=== PATIENT | female | born 1950 | race Caucasian/White ===

== ENCOUNTER 2018-03-19 18:18 | Inpatient (IN) | payer MEDICAID, OTHER ==
[~2018-03-19] VITALS: Ht 167.6 cm; Wt 74.1 kg
[~2018-03-19 18:18] MED LIST: [UNRECOGNIZED DRUG - REMARK]
[2018-03-19] MEDS ORDERED: SOD CHLORIDE 0.9% 1,000 ML IV STA (20:05)
[2018-03-19] MEDS ORDERED: niCARdipine-NS 0.1MG/ML DRIP 200 ML IV SCH (20:30)
[2018-03-19] MEDS ORDERED: ENALAPRILAT 1.25 MG INJ IV ONE (20:30)
--- NOTE | 2018-03-19 20:37 | ERD ---
ER Documentation Chief Complaint Chief Complaint Complains of being altered Hx of a stroke and HTN HPI This is a 67-year-old woman with a history of aphasia 6 years ago presenting with agitation and confusion. Daughter was at the bedside states she is unable to speak since the stroke but was showing signs of confusion about1 hour prior to arrival. She is able to ambulate and move her extremities, she had no vomiting or diarrhea, no recent fevers or chills. ROS All systems reviewed and are negative except as per history of present illness. Medications Home Meds Reported Medications Calcium Carbonate-Vit D3-Minerals (Calcium 600 + D + Minerals) 1 Each Tablet, 1 TAB PO DAILY, TAB 03/19/18 Atorvastatin* (Atorvastatin*) 80 Mg Tablet, 80 MG PO QHS, #30 TAB 03/19/18 Glimepiride* (Glimepiride*) 4 Mg Tablet, 4 MG PO WITH BREAKFAST, TAB 03/19/18 Benazepril Hcl* (Benazepril Hcl*) 40 Mg Tablet, 40 MG PO DAILY, #30 TAB 03/19/18 Aspirin* (Aspirin* EC) 81 Mg Tablet.dr, 81 MG PO DAILY, TAB 03/19/18 Metformin Hcl* (Metformin Hcl*) 500 Mg Tablet, 500 MG PO WITH BREAKFAST DINNE, #60 TAB 03/19/18 Labetalol Hcl* (Labetalol Hcl*) 100 Mg Tablet, 50 MG PO QAM, TAB 03/19/18 Discontinued Reported Medications [?Htn Med] No Conflict Check 04/04/12 Allergies Allergies: Coded Allergies: No Known Allergy (Unverified , 03/19/18) PMhx/Soc Hypertension, history of stroke and aphasia History of Surgery: No Anesthesia Reaction: No Hx Respiratory Disorders: No Hx Psychiatric Problems: No Hx Miscellaneous Medical Probl: Yes (HTN, DM, hyperlipidemia) Hx Alcohol Use: No Hx Substance Use: No Hx Tobacco Use: No Smoking Status: Never smoker FmHx Family History: No diabetes Physical Exam Vitals Vital Signs Date Temp Pulse Resp B/P (MAP) Pulse Ox O2 O2 Flow FiO2 Time Delivery Rate 03/19/18 97.9 74 20 207/101 99 18:23 (136) Physical Exam Const: No acute distress, afebrile, appears confused Head: Atraumatic Eyes: Normal Conjunctiva, pupils equal round reactive to light ENT: Normal External Ears, Nose and Mouth. Neck: Full range of motion. No meningismus. Resp: Clear to auscultation bilaterally Cardio: Regular rate and rhythm, no murmurs Abd: Soft, non tender, non distended. Normal bowel sounds Skin: No petechiae or rashes Back: No midline or flank tenderness Ext: No cyanosis, or edema Neur: Eyes open, aphasic, moving all extremities but movement is decreased to the left upper extremity, pupils equal round reactive to light Psych: Agitated, confused, combative Result Diagram: 03/19/18 2017 03/19/182016 Results 24 hrs Laboratory Tests Test 03/19/18 20:04 03/19/18 20:17 03/19/18 21:38 Bedside Glucose 212 mg/dL White Blood Count 9.4 10^3/ul Red Blood Count 3.73 10^6/ul Hemoglobin 10.8 g/dl Hematocrit 34.0 % Mean Corpuscular Volume 91.2 fl Mean Corpuscular 29.0 pg Hemoglobin Mean Corpuscular 31.8 g/dl Hemoglobin Concent Red Cell Distribution 13.5 % Width Platelet Count 199 10^3/UL Mean Platelet Volume 11.5 fl Immature Granulocytes % 0.400 % Neutrophils % 64.5 % Lymphocytes % 27.8 % Monocytes % 4.9 % Eosinophils % 1.9 % Basophils % 0.5 % Nucleated Red Blood Cells 0.0 /100WBC % Immature Granulocytes # 0.040 10^3/ul Neutrophils # 6.1 10^3/ul Lymphocytes # 2.6 10^3/ul Monocytes # 0.5 10^3/ul Eosinophils # 0.2 10^3/ul Basophils # 0.1 10^3/ul Nucleated Red Blood Cells 0.0 10^3/ul # Prothrombin Time 12.2 Sec Prothrombin Time Ratio 1.0 INR International 0.90 Normalized Ratio Activated 29.5 Sec Partial Thromboplast Time Sodium Level 140 mmol/L Potassium Level 4.7 mmol/L Chloride Level 102 mmol/L Carbon Dioxide Level 29 mmol/L Anion Gap 9 Blood Urea Nitrogen 16 mg/dl Creatinine 0.83 mg/dl Est Glomerular Filtrat > 60 mL/min Rate mL/min Glucose Level 193 mg/dl Calcium Level 8.7 mg/dl Total Bilirubin 0.3 mg/dl Direct Bilirubin 0.00 mg/dl Indirect Bilirubin 0.3 mg/dl Aspartate Amino 19 IU/L Transf (AST/SGOT) Alanine 17 IU/L Aminotransferase (ALT/SGP T) Alkaline Phosphatase 83 IU/L Troponin I < 0.012 ng/ml Total Protein 7.5 g/dl Albumin 3.9 g/dl Globulin 3.60 g/dl Albumin/Globulin Ratio 1.08 Lipase 55 U/L Blood Gas Specimen Source Blood arterial Arterial Blood Date 03/19/2018 9:45:12 PM Drawn Arterial Blood pH 7.383 (Temp corrected) Arterial Blood pCO2 49.4 mmhg (Temp correct) Arterial Blood pO2 152.9 mmHG (Temp corrected) Arterial Blood HCO3 28.8 mmol/L Arterial Blood Base 2.9 mmol/L Excess Arterial Blood 98.7 mmHG Oxygen Saturation Atul Test N/A Arterial Blood Gas Right Brachial Puncture Site Arterial 0.2 % Blood Carboxyhemoglobin Arterial Blood 0.3 % Methemoglobin Blood Gas A-a O2 111.8 mmHg Differential Oxyhemoglobin Percent 98.2 % Blood Gas Temperature 37.0 C Blood Gas Modality MASK - SIMPLE FiO2 45.0 % Blood Gas Notified Whom KM Blood Gas Notified Time 03/19/2018 9:57:48 PM Current Medications Medications Dose Sig/Alexandra Start Time Status Last (Trade) Ordered Route PRN Stop Time Admin Dose Reason Admin Sodium 1,000 ml @ Q1H STAT 03/19/18 DC 03/19/18 Chloride 1,000 mls/hr IV 20:05 21:04 03/19/18 21:04 Enalaprilat 1.25 mg ONCE ONCE 03/19/18 DC (Vasotec Iv) IV 20:30 03/19/18 20:31 Nicardipine 200 ml @ TITRATE IV 03/19/18 03/19/18 HCl 50 mls/hr 20:30 20:44 Lorazepam 1 mg ONCE ONCE 03/19/18 DC 03/19/18 (Ativan) IV 21:00 21:03 03/19/18 21:01 100 ml @ ONCE ONCE 03/19/18 DC 03/19/18 Levetiracetam 400 mls/hr IVPB 22:30 23:26 03/19/18 22:44 IV Flush 10 ml STK-MED 03/19/18 DC (NS 10 ml) ONCE .ROUTE 22:19 03/19/18 22:20 Sodium 100 ml @ ud STK-MED 03/19/18 DC Chloride ONCE .ROUTE 22:19 03/19/18 22:20 Iohexol 100 ml @ STK-MED 03/19/18 DC ONCE .ROUTE 22:19 03/19/18 22:20 Aspirin 300 mg ONCE ONCE 03/19/18 03/19/18 (Aspirin) CT 23:30 23:26 03/19/18 23:31 Procedures/MDM IV line was established 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 Patient was afebrile blood pressure in the emergency department revealed a diastolic of 140 mmHg I ordered normal saline and immediate nicardipine drip for hypertensive emergency and hypertensive encephalopathy. She is not a candidate for emergent CT scan of the brain as she is combative and confused EKG performed, read by me revealed a normal sinus rhythm at 77 bpm, left axis deviation, narrow QRS complex, no concerning ST elevations or depressions noted Chest X-ray 1V Interpreted by me: Soft Tissue: No acute abnormalities Bones: No acute abnormalities Mediastinum/Cardiac Silhouette/Lungs: No acute abnormalities Patient remained agitated and combative and to proceed with CT scan imaging and management I administered lorazepam [address] scan of the brain was performed, it was negative for acute bleed mass or shift Critical Care: Time: 43 minutes, this was time separate from other billable procedures. Treatments/Evaluations: Close monitoring and treatment of unstable vital signs, cardiorespiratory, and neurologic status, while maintaining tight balance of fluid, respiratory, and cardiac interventions. CBC and electrolytes are normal, liver function tests were normal, troponin was negative. ABG performed on low flow oxygen revealed a pH of 7.38, PCO2 49, PO2 150 revealing mild respiratory acidosis and hypercarbia I proceeded with tele-neurology consultation for administration of antiepileptic drugs due to the possibility of nonconvulsive seizure with with possible Polo's paralysis to the left upper extremity. Patient was initially not a good candidate for TPA as she has had a prior stroke and her systolic and diastolic pressures were extremely elevated and were not responding to aggressive antihypertensive medications. Tele-neurologist did evaluate the patient and did recommend Keppra IV for antiseizure prophylaxis. He also recommended CTA of the brain and neck to rule out large vessel occlusion, if the studies are unremarkable patient will be admitted for continued stroke workup. CTA cerebrum and neck were negative for large vessel occlusion. There is no indication for emergent endovascular clot retrieval therapy and patient will be admitted for continued medical management and neurology consultation. I administered aspirin 300 mg per rectum for neuro protective measures. Departure Diagnosis: Primary Impression: Acute encephalopathy Additional Impressions: Hypertensive emergency Stroke CVA mechanism: unspecified Qualified Codes: I63.9 - Cerebral infarction, unspecified Nonconvulsive generalized seizure disorder Condition: Serious BONNY SARMIENTO MD Mar 19, 2018 20:37
[2018-03-19] MEDS ORDERED: LABE100T7 PO (20:48)
[2018-03-19] MEDS ORDERED: METF500T24 PO (20:48)
[2018-03-19] MEDS ORDERED: BENA40TA56 PO (20:49)
[2018-03-19] MEDS ORDERED: ASPI-817 PO (20:49)
[2018-03-19] MEDS ORDERED: GLIM4TAB PO (20:51)
[2018-03-19] MEDS ORDERED: ATOR-2 PO (20:52)
[2018-03-19] MEDS ORDERED: CALC-74 PO (20:53)
[2018-03-19] MEDS ORDERED: LORAZEPAM 2 MG INJ IV ONE (21:00)
[2018-03-19] MEDS ORDERED: SOD CHLORIDE 0.9% 100 ML ONE (22:19)
[2018-03-19] MEDS ORDERED: IOHEXOL 100 ML ONE (22:19)
--- NOTE | 2018-03-19 22:24 | STROKE ---
Date/Time of Note Date/Time of Note DATE: 03/20/18 TIME: 01:14 Patient Information General Patient location: emergency Arrival Date Age 67 Gender female Weight 85 kg POC Glucose Glucose Result Bedside Glucose - 72 Hours Test 03/19/18 20:04 Bedside Glucose 212 mg/dL (70-220) Vital Signs Vital Signs Vital Signs Date Temp Pulse Resp B/P (MAP) Pulse Ox O2 O2 Flow FiO2 Time Delivery Rate 03/19/18 97.9 74 20 207/101 99 18:23 (136) Patient History Current Medications Allergies: Coded Allergies: No Known Allergy (Unverified , 03/19/18) Labs Coagulation Labs: Coagulation Test 03/19/18 20:17 Activated Partial Thromboplast Time 29.5 Sec (23.0-35.0) History & Physical History of Present Illness 67yo woman h/o prior stroke consulted for confusion. LKWT 520pm. Daughter was driving patient and noted pt appeared tired, and noted could not walk out of car when they reached home, then daughter brought her to [facility]. Patient noted to be agitated, coughing; given ativan. Also, noted to be significantly hypertensive. At baseline, has residual significant aphasia, can say a few words and underst and decently. Unable to say her name at baseline. Can walk without walker. Yesterday, appeared more lethargic than usual. Takes an aspirin regarding antithrombotic. NIH Stroke Scale NIH Stroke Scale [id number] l4d LOC Questions: Dumfq3g OC Commands: [id number] est Gaze: Bkqsl3a al: Yvwgj7x al Palsy: Hgpca9j rm - Left: Gpaqq3c Motor Arm - Right: Bogqg7c eft: Jupnz6e Motor Leg - Right: Bxkif4c Abnqa6t Jlifb0t est Language: Sozdk7l thria: Ddhks3m Qvlqi3q bwqw0It Total Score: Gywmo5f te/Time Recorded DATE: 03/20/18 TIME: 01:14 Submitted By Julius Smiley t-PA Imaging Review Date/Time Imaging Reviewed DATE: 03/20/18 TIME: :14 t-PA Administration Weight 85 kg Recommedation submitted by Julius Smiley Recommendations Recommendation NIHSS 19. Has baseline significant aphasia. Neurologic exam concerning for decreased movement of the left side vs hyperkinetic mvmt of right and possible right gaze preference and head deviation although at times can move eyes to l eft. Recommend to r/o large vessel occlusion with CTA head and neck. Otherwise, reasonable to also treat empirically for seizure with loading patient with an antiepileptic and ativan prn. Given concern for prior stroke which can serve as an epileptic focus, rec loading with fosphenytoin and continuing with maintenance dosing. Other consideration is keppra. If there is a large vessel occlusion, plan to transfer for eval for thrombectomy. If vessel imaging is without large vessel occlusion, rec further evaluation with MRI head, EEG, empiric tx with antiepileptic/ativan, continuation of home antithrombotic regimen and statin, and onsite evaluation by neurologist. JULIUS SMILEY Mar 19, 2018 22:24
[2018-03-19] MEDS ORDERED: LEVETIRACETAM 1000 MG (PMX) 100 ML IVPB ONE (22:30)
[2018-03-19] MEDS ORDERED: ASPIRIN 300 MG SUPP PR ONE (23:30)
[2018-03-20] MEDS ORDERED: CEFTRIAXONE 1 GM/50 ML (PMX) 50 ML IVPB ONE (08:30)
[2018-03-20] MEDS: DEXTROSE 5%-0.45% NACL 1,000 ML IV SCH ×2 (08:39→23:30)
--- NOTE | 2018-03-20 08:51 | HP ---
Date/Time of Note Date/Time of Note DATE: 03/20/18 TIME: 08:51 Assessment/Plan VTE Prophylaxis SCD applied (from Nsg): Yes Pharmacological prophylaxis: NA/contraindicated Pharm contraindication: bleeding Lines/Catheters IV Catheter Type (from Nrsg): Saline Lock Urinary Cath still in place: Yes Reason Cath still needed: terminal illness/intractable pain Assessment/Plan Assessment/Plan 1. Acute altered level of consciousness 2/2 CVA vs Seizures - Patient admitted for CVA workup and Neurology was consulted - Imaging studies noted - Teleneuro recommended MRI, EEG, and empiric antiseizure medications - Aspirin CA and will start statin when tolerating PO 2. ?Status epilepticus - Given keppra and loading dose of Dilantin in ED - No seizure activity appreciate at time of interview - EEG ordered and neuro on board - Seizure precautions and Ativan PRN 3. UTI - Patient febrile but WBC remain normal - Per daughter, noticed foul smelling urine - Will treat with antibiotics and awaiting culture results 4. CVA - ECHO ordered - MRI pending - Neuro on board - Aspirin and statin - PT/OT/ST when more awake 5. DM - A1c noted - ISS and accuchecks 6. HTN - holding home meds since allowing for permissive HTN 7. h/o CVA with aphasia - per daughter nonverbal but able to understand mother via gestures 8. Diet - NPO 9. DVT ppx - SCD 10. Code status - Full 11. Disposition - Admit to ICU for close monitoring given concern for status epilepticus Result Diagram: 03/19/18201603/19/182016 Results 24hrs Laboratory Tests Test 03/19/18 20:04 03/19/18 20:17 03/19/18 21:38 03/20/18 07:38 Bedside Glucose 212 White Blood 9.4 Count Red Blood Count 3.73 L Hemoglobin 10.8 L Hematocrit 34.0 L Mean 91.2 Corpuscular Volume Mean 29.0 Corpuscular Hemoglobin Mean 31.8 L Corpuscular Hemoglobin Conc ent Red Cell 13.5 Distribution Width Platelet Count 199 Mean Platelet 11.5 H Volume Immature 0.400 Granulocytes % Neutrophils % 64.5 Lymphocytes % 27.8 Monocytes % 4.9 Eosinophils % 1.9 Basophils % 0.5 Nucleated Red 0.0 Blood Cells % Immature 0.040 H Granulocytes # Neutrophils # 6.1 Lymphocytes # 2.6 Monocytes # 0.5 Eosinophils # 0.2 Basophils # 0.1 Nucleated Red 0.0 Blood Cells # Prothrombin 12.2 Time Prothrombin 1.0 Time Ratio INR 0.90 International Normalized Rati o Activated 29.5 Partial Thrombo plast Time Sodium Level 140 Potassium Level 4.7 Chloride Level 102 Carbon Dioxide 29 Level Anion Gap 9 Blood Urea 16 Nitrogen Creatinine 0.83 Est Glomerular > 60 Filtrat Rate mL/min Glucose Level 193 Calcium Level 8.7 Total Bilirubin 0.3 Direct 0.00 Bilirubin Indirect 0.3 Bilirubin Aspartate Amino 19 Transf (AST/SGO T) Alanine 17 Aminotransferas e (ALT/SGPT) Alkaline 83 Phosphatase Troponin I < 0.012 Total Protein 7.5 Albumin 3.9 Globulin 3.60 H Albumin/Globuli 1.08 n Ratio Lipase 55 Blood Gas Blood arterial Specimen Source Arterial Blood 03/19/2018 9:45 Date Drawn :12 PM Arterial Blood 7.383 pH (Temp corrected ) Arterial Blood 49.4 H pCO2 (Temp correct) Arterial Blood 152.9 H pO2 (Temp corrected ) Arterial Blood 28.8 H HCO3 Arterial Blood 2.9 Base Excess Arterial Blood 98.7 H Oxygen Saturati on Atul Test N/A Arterial Blood Right Brachial Gas Puncture Site Arterial 0.2 Blood Carboxyhe moglobin Arterial Blood 0.3 Methemoglobin Blood Gas A-a 111.8 H O2 Differential Oxyhemoglobin 98.2 Percent Blood Gas 37.0 Temperature Blood Gas MASK - SIMPLE Modality FiO2 45.0 Blood Gas KM Notified Whom Blood Gas 03/19/2018 9:57 Notified Time :48 PM Urine Color YELLOW Urine Clarity CLEAR Urine pH 7.0 Urine Specific 1.030 [place] Urine Ketones 1+ H Urine Nitrite NEGATIVE Urine Bilirubin NEGATIVE Urine NEGATIVE Urobilinogen Urine Leukocyte NEGATIVE Esterase Urine 32 H Microscopic RBC Urine 9 H Microscopic WBC Urine 1+ H Hemoglobin Urine Glucose 3+ H Urine Total 3+ H Protein Urine Opiates Negative Screen Urine Negative Barbiturates Urine Negative Amphetamines Screen Urine Negative Benzodiazepines Screen Urine Cocaine Negative Screen Urine Negative Cannabinoids Test 03/20/18 08:28 POC Venous 1.2 Lactate HPI/ROS Admit Date/Time Admit Date/Time 03/20/18 at 930 Hx of Present Illness 67 yo F with PMH Diabetes Mellitus, HTN, CVA with residual aphasia presented to ED last night due to altered level of consciousness. Patient nonresponsive and daughter at bedside. History obtained from ED physician as well as family member. Per daughter, patient was in the car and she noticed she was more lethargic than usual and was having difficulty walking. While sitting in the ED waiting room patient became more confused and was taken to CT scan. Teleneuro was consulted with recommendations for imaging studies and empirically treat wi th antiseizure medications. ED physician was concerned about status epilepticus and given Keppra, Dilantin loading dose and admitted to ICU for close monitoring. During interview, patient was not following commands or opening eyes. When pupillary reflex was assessed with light, patient appears agitated, shut eyes quickly and had contraction of right UE but no tonic clonic type of movement appreciated. ROS All 12 systems reviewed and pertinent positives as per HPI. Unable to fully assess ROS due to AMS. Subjective hx not possible: pt non-verbal, pt critical status Psychological: confusion PMH/Family/Social Past Medical History Medical History: diabetes, hypertension, other (CVA 6 years ago with aphasia) Medications Current Medications Nicardipine HCl 200 ml @ 50 mls/hr TITRATE IV Last administered on 03/19/18at 20:44; Admin Dose 50 MLS/HR; Start 03/19/18 at 20:30 Ceftriaxone Sodium 50 ml @ 100 mls/hr ONCE ONCE IVPB ; Start 03/20/18 at 08:30; Stop 03/20/18 at 08:59 Phenytoin 1000 mg/ Sodium Chloride 120 ml @ 240 mls/hr ONCE ONCE IV Last administered on 03/20/18at 08:43; Admin Dose 240 MLS/HR; Start 03/20/18 at 09:00; Stop 03/20/18 at 09:29 Acetaminophen (Tylenol Supp) 650 mg ONCE ONCE CA ; Start 03/20/18 at 09:00; Stop 03/20/18 at 09:01 Dextrose/Sodium Chloride 1,000 ml @ 75 mls/hr [id number] IV ; Start 03/20/18 at 08:39; Status UNV Ondansetron HCl (Zofran Inj) 4 mg Q6H PRN IV NAUSEA AND/OR VOMITING; Start 03/20/18 at 09:00; Status UNV Albuterol (Proventil 0.083% (Neb)) 2.5 mg Q2H RESP THERAPY PRN NEB SHORTNESS OF BREATH; Start 03/20/18 at 09:00; Status UNV Acetaminophen (Tylenol Supp) 650 mg Q4H PRN CA PAIN LEVEL 1-3 OR FEVER; Start 03/20/18 at 09:00; Status UNV Lorazepam (Ativan) 1 mg [id number] PRN IV seizures; Start 03/20/18 at 09:00; Status UNV Pantoprazole (Protonix Iv) 40 mg DAILY@06 IV ; Start 03/21/18 at 06:00; Status UNV Phenytoin (Dilantin) 100 mg Q8 IV ; Start 03/20/18 at 14:00; Status UNV Aspirin (Halfprin) 81 mg DAILY PO ; Start 03/20/18 at 09:00; Status UNV Atorvastatin Calcium (Lipitor) 80 mg QHS PO ; Start 03/20/18 at 21:00; Status UNV Miscellaneous Information (* Miscellaneous Pharmacy Order) Discontinue current oral sulfonylur... ONCE ONCE XX ; Start 03/20/18 at 09:00; Stop 03/20/18 at 09:01; Status UNV Miscellaneous Information (* Miscellaneous Pharmacy Order) HYPOGLYCEMIA PROTOCOL w... ONCE ONCE XX ; Start 03/20/18 at 09:00; Stop 03/20/18 at 09:01; Status UNV Insulin Aspart (Novolog Insulin Pen) NOVOLOG *MILD* ALGORI... Q4 SC ; Start 03/20/18 at 09:00; Status UNV Miscellaneous Information (* Miscellaneous Pharmacy Order) Discontinue all previ... ONCE ONCE XX ; Start 03/20/18 at 09:00; Stop 03/20/18 at 09:01; Status UNV Coded Allergies: No Known Allergy (Unverified , 03/19/18) Past Surgical History Past Surgical Hx: no surgical history Family History Significant Family History: no pertinent family hx Social History Alcohol Use: none Smoking Status: Never smoker Drug Use: none Exam/Review of Systems Vital Signs Vitals Vital Signs Date Temp Pulse Resp B/P (MAP) Pulse Ox O2 O2 Flow FiO2 Time Delivery Rate 03/20/18 102.9 88 28 114/66 100 Non 15.0 07:00 (82) Rebreathe r Intake and Output 03/19/18 03/19/18 03/20/18 1515:00 23:00 07:00 IntakeIntake Total 50 ml 100 ml BalanceBalance 50 ml 100 ml Exam Exam General: Patient remains nonresponsive, no acute distress. not following c ommands HEENT: Atraumatic, normocephalic. The pupils are equal, round and reactive. no nystagmus appreciated Neck: Supple with full range of motion. No rigidity or meningismus Chest: Nontender Lungs: Clear to auscultation bilaterally no crackles rales or wheezing Heart: Normal S1-S2, Regular rhythm and rate. No murmur, S3, or S4 Abdomen: Soft, non tender to palpation, nondistended. Bowel sounds are present. No guarding no rebound tenderness , No masses or organomegaly. No costovertebral temporal angle mass Extremities: Normal to inspection, no edema no cyanosis Neurologic: nonresponsive to verbal or tactile stimuli, pupils reactive, contracture of right arm and not moving LUE Skin: no rashes or lesions appreciated. Additional Comments Home medications reviewed Imaging: PROCEDURE: CTA Head and neck. CLINICAL INDICATION: Vascular occlusion. TECHNIQUE: CTA of the head and neck was obtained . Sagittal and coronal reformations and MIPs were provided. Images were obtained prior following the intravenous contrast administration of 100 cc of Omnipaque 350 contrast. The administered radiation dose was CTDI vol = 27.22, 19.34 mGy, DLP = 13.61, 696.5 mGy-cm. Coronal and sagittal as well as maximal intensity projection reformations were obtained. One or more of the following dose reduction techniques were used: Automated exposure control, Adjustment of the mA and/or kV according to patient size, or Use of iterative reconstruction technique. DICOM images are available. COMPARISON: There are no similar studies submitted for comparison.Noncontrast CT of the head from the same day. FINDINGS: CTA neck: Aorta: Normal in caliber. There are moderate vascular calcifications within the aortic arch. Right common carotid artery: Patent without evidence of stenosis. Right internal carotid artery: There are moderate vascular calcifications within the right carotid bulb. Patent without evidence of stenosis. Right external carotid artery: Patent without evidence of stenosis. Left common carotid artery: Patent without evidence of stenosis. Left internal carotid artery: There are moderate vascular calcifications within the left carotid bulb. Patent without evidence of stenosis. Left external carotid artery: Patent without evidence of stenosis. V1/V2 vertebral arteries: Patent bilaterally without evidence of stenosis. Vertebral artery dominance: Right. CTA head: Carotid arteries: There are moderate vascular calcifications within the bilateral cavernous and supraclinoid carotid arteries causing mild bilateral c avernous carotid artery stenosis. Anterior cerebral arteries: Patent bilaterally without evidence of stenosis. Middle cerebral arteries: Patent bilaterally without evidence of stenosis. Posterior cerebral arteries: Patent bilaterally without evidence of stenosis. Anterior communicating artery: Present. Posterior communicating arteries: There is a left posterior cerebral artery. There is a hypoplastic left P1 segment.. Basilar artery: Patent without evidence of stenosis. V3/V4 Vertebral arteries: Patent bilaterally without evidence of stenosis. Aneurysm: No aneurysm is identified. Venous sinuses: Patent. CT head with contrast: No significant change from recent noncontrast CT of the head. CT neck: There is no cervical adenopathy.There is straightening of the normal cervical lordosis. IMPRESSION: CTA Head 1. No arterial thrombus or vessel occlusion. 2. Mild bilateral cavernous carotid artery stenosis. 3. No intracranial aneurysm. 4. left posterior cerebral artery. CTA Neck 1. No bilateral cervical internal carotid artery stenosis by NASCET criteria. Further findings as detailed above. RPTAT: HVF .Tu Orozco MD, MD Date Time Electronically viewed and signed by .Tu Orozco MD, MD on 03/19/2018 22:46 PROCEDURE: CT Brain without contrast. CLINICAL INDICATION: Rule out bleed. TECHNIQUE: CT of the brain was performed from the skull base through the vertex without IV contrast. Multiplanar reformatted images were made. Images were reviewed on a PACS workstation. The CTDIvol is 37.13 mGy and the DLP is 634.23 mGycm. DICOM images are available. One or more of the following dose reduction techniques were utilized: 1.) Automated exposure control 2.) Adjustment of the mA +/- kV according to patient's size 3.) Use of iterative reconstruction technique. COMPARISON: MRI brain at 04/06/2012 FINDINGS: Brain: There is encephalomalacia within the left parietal and occipital lobes with ex vacuo dilatation of the left lateral ventricle, new since the prior MRI. Confluent periventricular and subcortical white matter hypodensities are present which are significantly more extensive on the previous exam. There is no loss of alberto-white matter differentiation to suggest acute territorial infarct. No intracranial hemorrhage, mass effect or midline shift seen. There are no extra- axial fluid collections. The ventricles are moderately larger in size than when compared to the prior exam which is likely due to volume loss. Soft tissues: Unremarkable. Skull and skull base: No fractures or destructive lesions. Mastoids and middle ear cavities are normal. Face/orbits: Visualized portions are unremarkable. Paranasal sinuses: Visualized portions are unremarkable. IMPRESSION: 1. Left parietal and occipital lobe encephalomalacia which is new compared to the prior study from March 2012. 2. Confluent supratentorial white matter hypodensities are most likely due to chronic small vessel ischemic changes, and these are significantly progressed compared to prior. 3. No evidence of acute territorial infarct or intracranial hemorrhage. 4. Interval progression of generalized parenchymal volume loss since the prior study. RPTAT: HEUY Physician zoey Date Time Electronically viewed and signed by Physician zoey on 03/19/2018 21:48 PROCEDURE: DX Chest 1 View CLINICAL INDICATION: Abdominal pain. ED patient. TECHNIQUE: AP Portable chest. COMPARISON: 04/09/2012. FINDINGS: Apical lordotic projection. Normal cardiac and mediastinal configuration. No CHF or hilar enlargement. Lungs are clear. IMPRESSION: No acute disease. RPTAT: HLRS Physician Ava Date Time Electronically viewed and signed by Physician Ava on 03/19/2018 20:50 JACQUIE BAIRD MD Mar 20, 2018 08:51
[2018-03-20] MEDS ORDERED: ONDANSETRON 4 MG INJ IV PRN (09:00)
[2018-03-20] MEDS ORDERED: ACETAMINOPHEN 650 MG SUPP PR ONE (09:00)
[2018-03-20] MEDS ORDERED: ACETAMINOPHEN 650 MG SUPP PR PRN (09:00)
[2018-03-20] MEDS ORDERED: ALBUTEROL 0.083% (NEB) 2.5 MG/3 ML AMP NEB PRN (09:00)
[2018-03-20] MEDS ORDERED: PHENYTOIN 1,000 MG in SOD CHLORIDE 0.9% 100 ML IV ONE (09:00)
[2018-03-20] MEDS ORDERED: LORAZEPAM 4 MG/ML VIAL IV PRN (09:00)
[2018-03-20] MEDS ORDERED: GLUCOSE GEL 15 GRAM TUBE PO PRN ×2 (09:30)
[2018-03-20] MEDS ORDERED: GLUCAGON 1 MG INJ IM PRN (09:30)
[2018-03-20] MEDS ORDERED: GLUCOSE GEL 15 GRAM TUBE BUCCAL PRN (09:30)
[2018-03-20] MEDS ORDERED: DEXTROSE 50% 50 ML SYRINGE IV PRN ×2 (09:30)
[2018-03-20] MEDS ORDERED: LORAZEPAM 2 MG INJ IV PRN (10:35)
[2018-03-20] MEDS: ASPIRIN (EC) 81 MG TAB PO SCH (10:35)
[2018-03-20] MEDS ORDERED: ACETAMINOPHEN 1000MG/100ML IV 100 ML IVPB ONE (11:00)
[2018-03-20] MEDS: INSULIN ASPART [NOVOLOG] 3 ML PEN SC SCH ×4 (11:03→21:36)
[2018-03-20] MEDS ORDERED: PHENYTOIN 100 MG INJ IV SCH (14:00)
--- NOTE | 2018-03-20 14:49 | EEG ---
EEG NOTE Report Details DATE OF TEST: 03/20/18 HISTORY: The patient is a 67-year-old F who presents with seizure. This EEG is requested to rule out nonconvulsive status epilepticus. SEDATION: None. CONDITIONS OF RECORDING: This EEG was recorded digitally on the [employer]izer machine, using the International 10-20 System of electrodes plus anterior temporals and [place]. STATES SAMPLED: Lethargic. FINDINGS: The background is continuous and grossly symmetric...predominated by polymorphic theta and delta activity.. The normal [id number]-[id number]-ramoaifvi frequency-amplitude gradient was absent. Photic stimulation does not elicit any definite driving responses or epileptiform discharges. Hyperventilation was not performed. No asymmetries, focal abnormalities or epileptiform discharges were seen. IMPRESSION: Abnormal electroencephalogram due to: severe diffuse slowing. COMMENT: The slowing of the background indicates severe, diffuse cortical dysfunction of nonspecific etiology. Clinical correlation is advised. KEVEN HASSAN Mar 20, 2018 14:49
--- NOTE | 2018-03-20 15:41 | CONS ---
Assessment/Plan Assessment/Plan Hospital Course 67 yo F with hx of CVA, HTN, and other comorbidities who presents with ams in the context of fevers, for which neurology is consulted. Most ominously concerning for encephalitis... Recurrent stroke is additionally considered.. EEG was notable for severe diffuse slowing, but was without evidence of epilep tiform activity. CTH is without acute intracranial pathology... CTA H/N is unrevealing P: LP for CSF evaluation as soon as able Empiric antimicrobials (including vancomycin and acyclovir) pending the above.. Add serum [place] Await MRI Brain for further characterization.. Agree w/ ASA/statin for secondary stroke prevention for now Hold Dilantin Ativan iv prn prolonged seizure.. [place] as able Limit sedating medications where possible Other workup and medical management per primary Will follow clinically Result Diagram: 03/19/18201603/19/182016 Results 24hrs Laboratory Tests Test 03/19/18 20:04 03/19/18 20:17 03/19/18 21:38 03/20/18 07:37 Bedside Glucose 212 White Blood 9.4 Count Red Blood Count 3.73 L Hemoglobin 10.8 L Hematocrit 34.0 L Mean 91.2 Corpuscular Volume Mean 29.0 Corpuscular Hemoglobin Mean 31.8 L Corpuscular Hemoglobin Conc ent Red Cell 13.5 Distribution Width Platelet Count 199 Mean Platelet 11.5 H Volume Immature 0.400 Granulocytes % Neutrophils % 64.5 Lymphocytes % 27.8 Monocytes % 4.9 Eosinophils % 1.9 Basophils % 0.5 Nucleated Red 0.0 Blood Cells % Immature 0.040 H Granulocytes # Neutrophils # 6.1 Lymphocytes # 2.6 Monocytes # 0.5 Eosinophils # 0.2 Basophils # 0.1 Nucleated Red 0.0 Blood Cells # Prothrombin 12.2 Time Prothrombin 1.0 Time Ratio INR 0.90 International Normalized Rati o Activated 29.5 Partial Thrombo plast Time Sodium Level 140 Potassium Level 4.7 Chloride Level 102 Carbon Dioxide 29 Level Anion Gap 9 Blood Urea 16 Nitrogen Creatinine 0.83 Est Glomerular > 60 Filtrat Rate mL/min Glucose Level 193 Calcium Level 8.7 Total Bilirubin 0.3 Direct 0.00 Bilirubin Indirect 0.3 Bilirubin Aspartate Amino 19 Transf (AST/SGO T) Alanine 17 Aminotransferas e (ALT/SGPT) Alkaline 83 Phosphatase Troponin I < 0.012 Total Protein 7.5 Albumin 3.9 Globulin 3.60 H Albumin/Globuli 1.08 n Ratio Lipase 55 Blood Gas Blood arterial Specimen Source Arterial Blood 03/19/2018 9:45 Date Drawn :12 PM Arterial Blood 7.383 pH (Temp corrected ) Arterial Blood 49.4 H pCO2 (Temp correct) Arterial Blood 152.9 H pO2 (Temp corrected ) Arterial Blood 28.8 H HCO3 Arterial Blood 2.9 Base Excess Arterial Blood 98.7 H Oxygen Saturati on Atul Test N/A Arterial Blood Right Brachial Gas Puncture Site Arterial 0.2 Blood Carboxyhe moglobin Arterial Blood 0.3 Methemoglobin Blood Gas A-a 111.8 H O2 Differential Oxyhemoglobin 98.2 Percent Blood Gas 37.0 Temperature Blood Gas MASK - SIMPLE Modality FiO2 45.0 Blood Gas KM Notified Whom Blood Gas 03/19/2018 9:57 Notified Time :48 PM Urine Opiates Negative Screen Urine Negative Barbiturates Urine Negative Amphetamines Screen Urine Negative Benzodiazepines Screen Urine Cocaine Negative Screen Urine Negative Cannabinoids Test 03/20/18 07:38 03/20/18 08:28 03/20/18 08:35 03/20/18 10:58 Urine Color YELLOW Urine Clarity CLEAR Urine pH 7.0 Urine Specific 1.030 [place] Urine Ketones 1+ H Urine Nitrite NEGATIVE Urine Bilirubin NEGATIVE Urine NEGATIVE Urobilinogen Urine Leukocyte NEGATIVE Esterase Urine 32 H Microscopic RBC Urine 9 H Microscopic WBC Urine 1+ H Hemoglobin Urine Glucose 3+ H Urine Total 3+ H Protein Urine Opiates Negative Screen Urine Negative Barbiturates Urine Negative Amphetamines Screen Urine Negative Benzodiazepines Screen Urine Cocaine Negative Screen Urine Negative Cannabinoids POC Venous 1.2 Lactate Hemoglobin A1c 7.2 H Bedside Glucose 349 H Test 03/20/18 14:40 Bedside Glucose 282 H Consultation Date/Type/Reason Admit Date/Time Type of Consult Neurology Reason for Consultation ams; eval for status epilepticus Date/Time of Note DATE: 03/20/18 TIME: 15:41 Hx of Present Illness 67 yo F with 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 History was obtained from family at bedside and chart review as pt is currently unable to contribute. It is elsewhere noted: Hx of Present Illness 67 yo F with PMH Diabetes Mellitus, HTN, CVA with residual aphasia presented to ED last night due to altered level of consciousness. Patient nonresponsive and daughter at bedside. History obtained from ED physician as well as family member. Per daughter, patient was in the car and she noticed she was more lethargic than usual and was having difficulty walking. While sitting in the ED waiting room patient became more confused and was taken to CT scan. Teleneuro was consulted with recommendations for imaging studies and empirically treat with antiseizure medications. ED physician was concerned about status epilepticus and given Keppra, Dilantin loading dose and admitted to ICU for close monitoring. During interview, patient was not following commands or opening eyes. When pupillary reflex was assessed with light, patient appears agitated, shut eyes quickly and had contraction of right UE but no tonic clonic type of movement appreciated. Subjective hx not possible: pt non-verbal Exam/Review of Systems Vital Signs Vitals Vital Signs Date Temp Pulse Resp B/P (MAP) Pulse Ox O2 O2 Flow FiO2 Time Delivery Rate 03/20/18 101.6 76 20 115/70 100 Mask 6.0 15:00 (85) 76 Intake and Output 03/19/18 03/19/18 03/20/18 1515:00 23:00 07:00 IntakeIntake Total 50 ml 100 ml BalanceBalance 50 ml 100 ml Exam PE: Gen Appearance: No Apparent Distress HEENT: Normocephalic; has Cardiovascular: Regular rate Abdomen: Soft Extremities: Dry NE: The patient was obtunded and nonverbal. Unable to open eyes or grimace to noxious stimuli. Cranial nerve examination was limited by mental status. Pupils were equal and reactive to light. There was no afferent pupillary defect. Funduscopic examination was limited. Face was grossly symmetric, w/ present corneal and cough reflexes. Tone was normal. Muscle bulk was normal. I did not see fasciculations. The patient localized to sternal rub in the UE and withdrew lowers to noxious stimulation (R>L). Coordination and gait testing was limited by mental status. Arm and leg reflexes were within normal limits and symmetric. Arenas's sign was absent. Plantar responses were extensor. Medications Medications Current Medications Nicardipine HCl 200 ml @ 50 mls/hr TITRATE IV Last administered on 03/19/18at 20:44; Admin Dose 50 MLS/HR; Start 03/19/18 at 20:30 Dextrose/Sodium Chloride 1,000 ml @ 75 mls/hr [id number] IV Last administered on 03/20/18at 08:39; Admin Dose 75 MLS/HR; Start 03/20/18 at 08:39 Ondansetron HCl (Zofran Inj) 4 mg Q6H PRN IV NAUSEA AND/OR VOMITING; Start 03/20/18 at 09:00 Albuterol (Proventil 0.083% (Neb)) 2.5 mg Q2H RESP THERAPY PRN NEB SHORTNESS OF BREATH; Start 03/20/18 at 09:00 Acetaminophen (Tylenol Supp) 650 mg Q4H PRN [place] PAIN LEVEL 1-3 OR FEVER; Start 03/20/18 at 09:00 Pantoprazole (Protonix Iv) 40 mg DAILY@06 IV ; Start 03/21/18 at 06:00 Phenytoin (Dilantin) 100 mg Q8 IV Last administered on 03/20/18at 14:48; Admin Dose 100 MG; Start 03/20/18 at 14:00 Aspirin (Halfprin) 81 mg DAILY PO ; Start 03/20/18 at 09:00 Atorvastatin Calcium (Lipitor) 80 mg QHS PO ; Start 03/20/18 at 21:00 Insulin Aspart (Novolog Insulin Pen) NOVOLOG *MILD* ALGORI... Q4 SC Last administered on 03/20/18at 14:47; Admin Dose 4 UNIT; Start 03/20/18 at 09:00 Miscellaneous Information 1 ea NOTE XX ; Start 03/20/18 at 09:30 Glucose (Glutose) 15 gm Q15M PRN PO DECREASED GLUCOSE; Start 03/20/18 at 09:30 Glucose (Glutose) 22.5 gm Q15M PRN PO DECREASED GLUCOSE; Start 03/20/18 at 09:30 Dextrose (D50w Syringe) 25 ml Q15M PRN IV DECREASED GLUCOSE; Start 03/20/18 at 09:30 Dextrose (D50w Syringe) 50 ml Q15M PRN IV DECREASED GLUCOSE; Start 03/20/18 at 09:30 Glucagon (Glucagen) 1 mg Q15M PRN IM DECREASED GLUCOSE; Start 03/20/18 at 09:30 Glucose (Glutose) 15 gm Q15M PRN BUCCAL DECREASED GLUCOSE; Start 03/20/18 at 09:30 Cefepime HCl 50 ml @ 100 mls/hr Q12 IVPB ; Start 03/20/18 at 21:00 Lorazepam (Ativan) 1 mg [id number] PRN IV seizures; Start 03/20/18 at 10:35 Past Medical History reviewed Medications Current Medications Nicardipine HCl 200 ml @ 50 mls/hr TITRATE IV Last administered on 03/19/18at 20:44; Admin Dose 50 MLS/HR; Start 03/19/18 at 20:30 Dextrose/Sodium Chloride 1,000 ml @ 75 mls/hr [id number] IV Last administered on 03/20/18at 08:39; Admin Dose 75 MLS/HR; Start 03/20/18 at 08:39 Ondansetron HCl (Zofran Inj) 4 mg Q6H PRN IV NAUSEA AND/OR VOMITING; Start 03/20/18 at 09:00 Albuterol (Proventil 0.083% (Neb)) 2.5 mg Q2H RESP THERAPY PRN NEB SHORTNESS OF BREATH; Start 03/20/18 at 09:00 Acetaminophen (Tylenol Supp) 650 mg Q4H PRN [place] PAIN LEVEL 1-3 OR FEVER; Start 03/20/18 at 09:00 Pantoprazole (Protonix Iv) 40 mg DAILY@06 IV ; Start 03/21/18 at 06:00 Phenytoin (Dilantin) 100 mg Q8 IV Last administered on 03/20/18at 14:48; Admin Dose 100 MG; Start 03/20/18 at 14:00 Aspirin (Halfprin) 81 mg DAILY PO ; Start 03/20/18 at 09:00 Atorvastatin Calcium (Lipitor) 80 mg QHS PO ; Start 03/20/18 at 21:00 Insulin Aspart (Novolog Insulin Pen) NOVOLOG *MILD* ALGORI... Q4 SC Last administered on 03/20/18at 14:47; Admin Dose 4 UNIT; Start 03/20/18 at 09:00 Miscellaneous Information 1 ea NOTE XX ; Start 03/20/18 at 09:30 Glucose (Glutose) 15 gm Q15M PRN PO DECREASED GLUCOSE; Start 03/20/18 at 09:30 Glucose (Glutose) 22.5 gm Q15M PRN PO DECREASED GLUCOSE; Start 03/20/18 at 09:30 Dextrose (D50w Syringe) 25 ml Q15M PRN IV DECREASED GLUCOSE; Start 03/20/18 at 09:30 Dextrose (D50w Syringe) 50 ml Q15M PRN IV DECREASED GLUCOSE; Start 03/20/18 at 09:30 Glucagon (Glucagen) 1 mg Q15M PRN IM DECREASED GLUCOSE; Start 03/20/18 at 09:30 Glucose (Glutose) 15 gm Q15M PRN BUCCAL DECREASED GLUCOSE; Start 03/20/18 at 09:30 Cefepime HCl 50 ml @ 100 mls/hr Q12 IVPB ; Start 03/20/18 at 21:00 Lorazepam (Ativan) 1 mg [id number] PRN IV seizures; Start 03/20/18 at 10:35 Allergies: Coded Allergies: No Known Allergy (Unverified , 03/19/18) Past Surgical History reviewed Social History reviewed Smoking Status: Never smoker SISSY HARRY NP Mar 20, 2018 15:41 KEVEN HASSAN Mar 20, 2018 21:33
--- NOTE | 2018-03-20 16:35 | RADRPT ---
Echocardiogram Report Patient Name: DAVID PRIDE Gender: Female Date: 1950 Study Date: 20-Mar-2018 Cake Washer: Bruce Reyes RDCS Location: [facility] Ref. Physician: JACQUIE BAIRD Quality: Good Procedures: Transthoracic echocardiogram with complete 2D, M-Mode, and doppler examination. Indications: Evaluate Left Ventricular function. 2D/M Mode Doppler Measurement Value Normal Ranges Measurement Value Normal Ranges LVIDd 2D 4.6 3.5 - 5.6 cm AV Peak Suman 1.3 m/sec LVIDs 2D 2.7 2.1 - 4.1 cm AV Peak PG 7.0 mmHg LVPWd 2D 1.0 0.6 - 1.1 cm LVOT Peak Suman 1.1 m/sec IVSd 2D 0.9 0.6 - 1.1 cm LVOT Peak PG 5.0 mmHg AoR Diam 2D 2.7 2.0 - 3.7 cm MV E Peak Suman 0.8 m/sec LA Dimen 2D 2.9 2.3 - 4.0 cm MV A Peak Suman 0.9 m/sec MV E/A 0.8 MV Decel Time 204 msec Lat E` Suman 0.1 m/sec Lateral E/E` 6.8 MV E/A 0.8 Findings Left Ventricle: Normal left ventricular systolic function. Normal left ventricular cavity size. Normal left ventricular wall thickness. Ejection fraction is visually estimated at 60 %. Tissue Doppler/Mitral Doppler indices are consistent with impaired relaxation (Stage I diastolic dysfunction). Right Ventricle: Normal right ventricular size. Normal right ventricular systolic function. Left Atrium: The left atrium is normal in size. Right Atrium: The right atrium is normal in size. Mitral Valve: Normal appearance and function of the mitral valve with trace physiologic regurgitation. Aortic Valve: Normal appearance of the aortic valve. No significant aortic stenosis or insufficiency. Tricuspid Valve: Normal appearance of the tricuspid valve. Unable to obtain RVSP due to minimal presence of tricuspid regurgitation. Pulmonic Valve: Normal pulmonic valve appearance. Pericardium: Normal pericardium with no significant pericardial effusion. Aorta: Normal aortic root. IVC: Normal size and normal respiratory collapse consistent with normal right atrial pressure. Conclusions Normal left ventricular systolic function. Normal left ventricular cavity size. Normal left ventricular wall thickness. Ejection fraction is visually estimated at 60 %. Tissue Doppler/Mitral Doppler indices are consistent with impaired relaxation (Stage I diastolic dysfunction). Normal appearance and function of the mitral valve with trace physiologic regurgitation. Normal appearance of the tricuspid valve. Unable to obtain RVSP due to minimal presence of tricuspid regurgitation. Electronically Signed By: Matteo Botello 20-Mar-2018 16:35:18 -0800 Patient Name: DAVID PRIDE Study Date: 20-Mar-2018 [id number]
[2018-03-20] MEDS: ATORVASTATIN 80 MG TAB PO SCH (21:00)
[2018-03-20] MEDS: CEFEPIME 1GM/50 ML (PMX) 50 ML IVPB SCH (21:32)
[2018-03-20] MEDS: ACYCLOVIR 500 MG in SOD CHLORIDE 0.9% 100 ML IVPB SCH (22:55)
[2018-03-20 23:23] VITALS: PULSE 80
[2018-03-20 23:25] VITALS: PULSE 80
[2018-03-20 23:26] VITALS: PULSE 80
[2018-03-20 23:32] VITALS: BP 117/103; PULSE 78; RESP 22
[2018-03-20] MEDS: VANCOMYCIN 750 MG (PMX) 250 ML IVPB SCH (23:38)
--- NOTE | 2018-03-20 23:47 | NUR ---
ADMIT TO ICU ROOM 116 ED nurse LORRAINE Lozano, gave report @ 7430. Pt. arrived on unit escorted by ED RN and Transportation services @ 0080. Pt. transferred to ICU bed from ED [facility] via slide board and assistance of 5 people. Upon arrival pt. was a little restless but calmed down once she was situated in ICU bed. Pt. not responsive to name, and nonverbal and not currently following commands. Pt. not opening eyes but moving all extremities. Pt. saturating @ 91% on room air, will place on NC to get saturations up as Pt. was on oxygen in ED via report I received. Currently pt. has D51/2NS running at 75cc/hr and Acyclovir infusing. Was told family present at hospital and were at bedside in ED however did not find anyone currently waiting in waiting room lobby, will check back for family members in order to obtain a more detailed history. Pt. was transferred with medications however I will encourage family members to take home or will send to pharmacy if family has gone home for the night. Will continue to monitor pt. for remainder of shift.
[2018-03-21] VITALS (19 sets, daily range): BP systolic 91–142; BP diastolic 53–78; PULSE 63–94; RESP 13–24; Ht 167.6 cm; Wt 74.1 kg
[2018-03-21] MEDS: INSULIN ASPART [NOVOLOG] 3 ML PEN SC SCH ×6 (01:40→21:43)
--- NOTE | 2018-03-21 02:48 | NUR ---
PERSONAL BELONGINGS: Pt. 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
[2018-03-21] MEDS: PANTOPRAZOLE 40 MG INJ IV SCH (05:58)
[2018-03-21] MEDS: ACYCLOVIR 500 MG in SOD CHLORIDE 0.9% 100 ML IVPB SCH ×3 (05:59→21:48)
[2018-03-21] MEDS ORDERED: MAGNESIUM SULFATE 4 GM/100 ML 100 ML IVPB ONE ×2 (07:00→09:00)
--- NOTE | 2018-03-21 07:39 | NUR ---
EOSS: Pt. did well overnight, no acute changes. Pt. showing improvement on mental status. Upon admission to ICU pt. was not able to follow any commands, and pt. was non-verbal with eyes shunt. Pt. started to wake up and become much more alert around 0330. Restraints were applied due to patient pulling at EKG leads and IVs and later D/C'd due to improving mentation. Pt. proceeded to pull out IVs at 0630, new IVs were placed and oncoming shift notified of behavior. No family at bedside throughout shift, no pharmacy technician infusion came to pickers material handlers medications that were with pt. For now medications are being stored in pt. medication bin in cabinet until picked up. All information has been endorsed to day shift INESSA CAMARENA
--- NOTE | 2018-03-21 08:50 | PN ---
Date/Time of Note Date/Time of Note DATE: 03/21/18 TIME: 08:50 Assessment/Plan VTE Prophylaxis Risk score (from Ns)>0 risk: 4 SCD applied (from [facility]): Yes Pharmacological prophylaxis: NA/contraindicated Pharm contraindication: bleeding Lines/Catheters IV Catheter Type (from [facility]): Peripheral IV Urinary Cath still in place: No Assessment/Plan Assessment/Plan 1. Acute altered level of consciousness 2/2 ?encephalitis - Neuro on board and concerned about encephalitis. LP ordered with fluid studies and started on antibiotics and antiviral - Patient back to baseline per family and able to follow commands and answer simple questions - ST/PT/OT ordered 2. ?Status epilepticus- ruled out - EEG negative and Dilantin d/c - No seizure activity appreciated 3. UTI - remains afebrile this am - urine cx ordered - currently on antibiotics 4. CVA - does not appear to have new stroke like residual effects - MRI pending - continue monitoring neurological status 5. DM - A1c noted - ISS and accuchecks 6. HTN - BP controlled and will resume home medications as needed if BP elevated 7. h/o CVA with aphasia - per daughter nonverbal but able to understand mother via gestures 8. Disposition - Stable for downgrade to telemetry - Pending MRI and LP today >35 minutes of critical care time spent with patient and family at bedside Result Diagram: 03/21/18 0448 03/21/18 0448 Results 24hrs Laboratory Tests Test 03/20/18 10:58 03/20/18 14:40 03/20/18 17:44 03/20/18 21:26 Bedside Glucose 349 H 282 H 238 H 183 Test 03/21/18 01:34 03/21/18 04:48 03/21/18 05:08 Bedside Glucose 193 223 H White Blood 13.7 #H Count Red Blood Count 3.51 L Hemoglobin 10.1 L Hematocrit 31.2 L Mean Corpuscular 88.9 Volume Mean Corpuscular 28.8 L Hemoglobin Mean Corpuscular 32.4 Hemoglobin [place] nt Red Cell 14.0 Distribution Width Platelet Count 149 # Mean Platelet 11.3 H Volume Immature 0.400 Granulocytes % Neutrophils % 73.0 Lymphocytes % 18.0 Monocytes % 8.2 Eosinophils % 0.1 Basophils % 0.3 Nucleated Red 0.0 Blood Cells % Immature 0.050 H Granulocytes # Neutrophils # 10.0 H Lymphocytes # 2.5 Monocytes # 1.1 H Eosinophils # 0.0 Basophils # 0.0 Nucleated Red 0.0 Blood Cells # Sodium Level 141 Potassium Level 3.4 L Chloride Level 103 Carbon Dioxide 27 Level Anion Gap 11 Blood Urea 19 Nitrogen Creatinine 0.85 Glucose Level 205 Calcium Level 7.8 L Phosphorus Level 3.6 Magnesium Level 1.3 L Albumin 3.0 L Subjective 24 Hr Interval Summary Free Text/Dictation Patient doing well and more awake this am. Able to answer simple questions despite aphasic. Family at bedside and states at baseline. Exam/Review of Systems Vital Signs Vitals Vital Signs Date Temp Pulse Resp B/P (MAP) Pulse Ox O2 O2 Flow FiO2 Time Delivery Rate 03/21/18 67 24 113/63 100 Nasal 2.0 06:00 (80) Cannula 03/21/18 98.4 04:00 Intake and Output 03/20/18 03/20/18 03/21/18 1515:00 23:00 07:00 IntakeIntake Total 1088 ml OutputOutput Total 500 ml BalanceBalance 588 ml Exam General: Patient in no acute distress. following commands and answering simple questions HEENT: Atraumatic, normocephalic. The pupils are equal, round and reactive. no nystagmus appreciated Neck: Supple Chest: Nontender Lungs: Clear to auscultation bilaterally no crackles rales or wheezing Heart: Normal S1-S2, Regular rhythm and rate. No murmur, S3, or S4 Abdomen: Soft, non tender to palpation, nondistended. Bowel sounds are present. No guarding no rebound tenderness Extremities: Normal to inspection, no edema no cyanosis Neurologic: aphasic. moving all extremities and following commands, strength 4/5 all extremities and sensation intact. Medications Medications Current Medications Nicardipine HCl 200 ml @ 50 mls/hr TITRATE IV Last administered on 03/19/18at 20:44; Admin Dose 50 MLS/HR; Start 03/19/18 at 20:30 Dextrose/Sodium Chloride 1,000 ml @ 75 mls/hr [id number] IV Last administered on 03/20/18at 23:30; Admin Dose 75 MLS/HR; Start 03/20/18 at 08:39 Ondansetron HCl (Zofran Inj) 4 mg Q6H PRN IV NAUSEA AND/OR VOMITING; Start 12/28/18 at 09:00 Albuterol (Proventil 0.083% (Neb)) 2.5 mg Q2H RESP THERAPY PRN NEB SHORTNESS OF BREATH; Start 03/20/18 at 09:00 Acetaminophen (Tylenol Supp) 650 mg Q4H PRN [place] PAIN LEVEL 1-3 OR FEVER; Start 03/20/18 at 09:00 Pantoprazole (Protonix Iv) 40 mg DAILY@06 IV Last administered on 03/21/18at 05:58; Admin Dose 40 MG; Start 03/21/18 at 06:00 Aspirin (Halfprin) 81 mg DAILY PO ; Start 03/20/18 at 09:00 Atorvastatin Calcium (Lipitor) 80 mg QHS PO ; Start 03/20/18 at 21:00 Insulin Aspart (Novolog Insulin Pen) NOVOLOG *MILD* ALGORI... Q4 SC Last administered on 03/21/18at 05:10; Admin Dose 3 UNIT; Start 03/20/18 at 09:00 Miscellaneous Information 1 ea NOTE XX ; Start 03/20/18 at 09:30 Glucose (Glutose) 15 gm Q15M PRN PO DECREASED GLUCOSE; Start 03/20/18 at 09:30 Glucose (Glutose) 22.5 gm Q15M PRN PO DECREASED GLUCOSE; Start 03/20/18 at 09:30 Dextrose (D50w Syringe) 25 ml Q15M PRN IV DECREASED GLUCOSE; Start 03/20/18 at 09:30 Dextrose (D50w Syringe) 50 ml Q15M PRN IV DECREASED GLUCOSE; Start 03/20/18 at 09:30 Glucagon (Glucagen) 1 mg Q15M PRN IM DECREASED GLUCOSE; Start 03/20/18 at 09:30 Glucose (Glutose) 15 gm Q15M PRN BUCCAL DECREASED GLUCOSE; Start 03/20/18 at 09:30 Cefepime HCl 50 ml @ 100 mls/hr Q12 IVPB Last administered on 03/20/18at 21:32; Admin Dose 100 MLS/HR; Start 03/20/18 at 21:00 Lorazepam (Ativan) 1 mg [id number] PRN IV seizures; Start 03/20/18 at 10:35 Acyclovir 500 mg/ Sodium Chloride 100 ml @ 100 mls/hr Q8H IVPB Last administered on 03/21/18at 05:59; Admin Dose 100 MLS/HR; Start 03/20/18 at 22:00 Vancomycin/Sodium Chloride 250 ml @ 125 mls/hr Q12H IVPB Last administered on 03/20/18at 23:38; Admin Dose 125 MLS/HR; Start 03/20/18 at 23:00 Magnesium Sulfate 100 ml @ 25 mls/hr ONCE ONCE IVPB Last administered on 03/21/18at 08:30; Admin Dose 25 MLS/HR; Start 03/21/18 at 07:00; Stop 03/21/18 at 10:59 Potassium Chloride 50 ml @ 50 mls/hr K PROTOCOL PRN IVPB PENDING LAB VALUE; Start 03/21/18 at 09:00; Status UNV Magnesium Sulfate 100 ml @ 25 mls/hr ONCE ONCE IVPB ; Start 03/21/18 at 09:00; Stop 03/21/18 at 12:59; Status UNV Potassium Chloride/Sodium Chloride 1,000 ml @ 75 mls/hr [id number] IV ; Start 03/21/18 at 09:00; Status UNV JACQUIE BAIRD MD Mar 21, 2018 08:50
[2018-03-21] MEDS: CEFEPIME 1GM/50 ML (PMX) 50 ML IVPB SCH ×2 (08:55→20:27)
[2018-03-21] MEDS: ASPIRIN (EC) 81 MG TAB PO SCH (09:00)
[2018-03-21] MEDS ORDERED: POTASSIUM CHLORIDE 50 ML IVPB PRN (09:00)
[2018-03-21] MEDS: 1/2 NS + KCL 20 MEQ 1,000 ML IV SCH ×2 (10:00→21:49)
[2018-03-21] MEDS: VANCOMYCIN 750 MG (PMX) 250 ML IVPB SCH (11:21)
--- NOTE | 2018-03-21 11:41 | CONS ---
Assessment/Plan Assessment/Plan Hospital Course 67 yo F with hx of CVA, HTN, and other comorbidities who presents with ams in the context of fevers, for which neurology is consulted. Most ominously concerning for encephalitis... Recurrent stroke is additionally considered.. EEG was notable for severe diffuse slowing, but was without evidence of epilep tiform activity. CTH is without acute intracranial pathology... CTA H/N is unrevealing LP was attempted, but aborted due to patient's intolerance. P: Empiric antimicrobials per ID (including vancomycin and acyclovir) as renal function allows.. Await MRI Brain for further characterization.. Agree w/ ASA/statin for secondary stroke prevention for now Hold Dilantin Ativan iv prn prolonged seizure.. Reorient as able Limit sedating medications where possible Other workup and medical management per primary Will follow clinically Result Diagram: 03/21/18 0448 03/21/18 0448 Results 24hrs Laboratory Tests Test 03/20/18 14:40 03/20/18 17:44 03/20/18 21:26 03/21/18 01:34 Bedside Glucose 282 H 238 H 183 193 Test 03/21/18 04:48 03/21/18 05:08 03/21/18 09:13 White Blood 13.7 #H Count Red Blood Count 3.51 L Hemoglobin 10.1 L Hematocrit 31.2 L Mean Corpuscular 88.9 Volume Mean Corpuscular 28.8 L Hemoglobin Mean Corpuscular 32.4 Hemoglobin Ruthy nt Red Cell 14.0 Distribution Width Platelet Count 149 # Mean Platelet 11.3 H Volume Immature 0.400 Granulocytes % Neutrophils % 73.0 Lymphocytes % 18.0 Monocytes % 8.2 Eosinophils % 0.1 Basophils % 0.3 Nucleated Red 0.0 Blood Cells % Immature 0.050 H Granulocytes # Neutrophils # 10.0 H Lymphocytes # 2.5 Monocytes # 1.1 H Eosinophils # 0.0 Basophils # 0.0 Nucleated Red 0.0 Blood Cells # Sodium Level 141 Potassium Level 3.4 L Chloride Level 103 Carbon Dioxide 27 Level Anion Gap 11 Blood Urea 19 Nitrogen Creatinine 0.85 Glucose Level 205 Calcium Level 7.8 L Phosphorus Level 3.6 Magnesium Level 1.3 L Albumin 3.0 L Bedside Glucose 223 H 187 Consultation Date/Type/Reason Admit Date/Time Mar 20, 2018 at 08:28 Type of Consult Neurology Reason for Consultation ams; eval for status epilepticus Date/Time of Note DATE: 03/21/18 TIME: 11:41 24 HR Interval Summary Free Text/Dictation Continues critical care. Did not tolerate LP. Pt reportedly more awake and alert today. Family states that the pt appears better today. Exam Vital Signs Vitals Vital Signs Date Temp Pulse Resp B/P (MAP) Pulse Ox O2 O2 Flow FiO2 Time Delivery Rate 03/21/18 82 18 116/74 94 Room Air 11:00 (88) 03/21/18 98.9 08:00 03/21/18 2.0 06:00 Intake and Output 03/20/18 03/20/18 03/21/18 1515:00 23:00 07:00 IntakeIntake Total 1088 ml OutputOutput Total 500 ml BalanceBalance 588 ml Exam PE: Gen Appearance: No Apparent Distress HEENT: Normocephalic Cardiovascular: Regular rate Lungs: Clear bilaterally Abdomen: Soft Extremities: Dry NE: The patient was alert and oriented. Nonverbal. Able to follow both axial and appendicular commands. Pupils were equal and reactive to light. There was no afferent pupillary defect. Visual caldwell were normal. Funduscopic examination was limited. Extra-ocular movements were full. Ptosis was absent. There was no nystagmus. Facial sensation was normal. Face was symmetric with normal strength. Hearing was intact. Palate movements were normal. Neck strength was normal. There was normal tongue bulk and speed of movement. Tone was normal. Muscle bulk was normal. I did not see fasciculations. Arms were barely antigravity; legs were very weak and symmetric Vibration sensation was normal. Temperature and pinprick sensation was normal. Rapid alternating movements were normal. There was no dysmetria. There was no intention tremor. Gait was deferred due to bedrest. Arm and leg reflexes were 2+ and symmetric. Arenas's sign was absent. Plantar responses were extensor. SISSY HARRY NP Mar 21, 2018 11:41 KEVEN HASSAN Mar 22, 2018 07:03
--- NOTE | 2018-03-21 12:10 | NUR ---
Report given by LORRAINE Jones to continue care for patient. Patient to go to Rm [id number].
--- NOTE | 2018-03-21 12:30 | NUR ---
Patient transfer from ICU re:ALOC, confusion. Patient eyes closed, nonverbal, RA, SR on monitor, NPO with LP ordered, MRI/MRA brain. F/C incontinent. Skin re: will take pictures. Will continue to monitor. Per Robert, [employer] patient's own medication given to family.
--- NOTE | 2018-03-21 12:41 | NUR ---
ST NOTE: pt is a 67 year old female admitted sec.to Acute altered level of consciousness 2/2 CVA vs Seizures. pt found to have UTI; PMH: CVA with aphasia; DM; HTN CT:03/19 &03.20 1. Left parietal and occipital lobe encephalomalacia which is new compared to the prior study from March 2012. 2. Confluent supratentorial white matter hypodensities are most likely due to chronic small vessel ischemic changes, and these are significantly progressed compared to prior. 3. No evidence of acute territorial infarct or intracranial hemorrhage. 4. Interval progression of generalized parenchymal volume loss since the prior study. CXR: 03/19 lungs clear Premorbid diet; reg/thin per daughter and current diet; NPO pending swallow eval; pt did not pass [place] in ER. WBC high; pt afebrile; no supplemental oxygen on room air Dental status; permanent upper and lower dentition pt having difficulty following simple commands; could not test oral motor function; daughter reports pt more cognitively impaired then previous; pt unable to verbal her name; cues and repetition needed. po trials given; repositioned pt several times to sit upright; poor trunk control once repositioned gave thin via spoon; pt not very interested but family encouraged pt to take; no difficulty via spoon; cup; unable to take via straw; pt chewing on the straw; good laryngeal elevation; upper airway clear to auscultation; puree wfl; 4 ounces given; min oral residue solid; took full cracker; able to masticate but slow; some oral residue that needed liquid wash down; no coughing; vocal quality clear; airway clear to auscultation; rec. start SOFT GROUND diet with thin liquids; no straws; pills with puree if cannot take whole with thin; st to follow for dysphagia therapy to ensure safe tolerance for rec. diet and trials to advance;pt family education and training; will f/up with family her exact baseline as appears to have worsened then would rec. speech language and cog evaluation discussed results and rec. with pt/family and LORRAINE Jones;
--- NOTE | 2018-03-21 13:13 | NUR ---
Patient was endorsed to RN Aretha of telemetry and transferred to [facility] afterwards. Patient's home medications were given back to her family. She had stable VS since the shift change in the morning until her transfer to telemetry.
--- NOTE | 2018-03-21 13:50 | NUR ---
Patient off the floor for LP.
[2018-03-21] MEDS ORDERED: LIDOCAINE 1% (MPF) 5 ML VIAL ONE (14:17)
--- NOTE | 2018-03-21 19:54 | NUR ---
EOSS: Patient transferred from ICU re: ALOC, confusion. Patient aphasic, sometimes follow simple commands. S/R on monitor. F/C in place. Patient needs to be reminded not to pull Tele monitor. Patient to start diet, soft diet per ST recommendation. Patient with scheduled LP, not done, pt unable to keep still. Dr. Larson aware, left message with Dr. Jones. MRI of brain to be done in am. Patient prone to fall, bed alarm at all times. Will continue to monitor.
[2018-03-21] MEDS: ATORVASTATIN 80 MG TAB PO SCH (20:27)
[2018-03-22] VITALS (11 sets, daily range): BP systolic 131–193; BP diastolic 68–88; PULSE 75–84; RESP 16–19
[2018-03-22] MEDS: LORAZEPAM 4 MG/ML VIAL IV PRN ×3 (00:27→23:25)
[2018-03-22] MEDS: VANCOMYCIN 750 MG (PMX) 250 ML IVPB SCH ×3 (00:28→23:25)
[2018-03-22] MEDS: INSULIN ASPART [NOVOLOG] 3 ML PEN SC SCH ×6 (04:18→20:12)
[2018-03-22] MEDS: PANTOPRAZOLE 40 MG INJ IV SCH (05:25)
[2018-03-22] MEDS: ACYCLOVIR 500 MG in SOD CHLORIDE 0.9% 100 ML IVPB SCH ×3 (05:25→22:55)
--- NOTE | 2018-03-22 07:36 | NUR ---
EOSS Pt. laying in bed comfortably. Denied any pain upon my shift. Hourly rounding completed. Call light within reach. Will endorse continuity of care to day shift.
[2018-03-22] MEDS: ASPIRIN (EC) 81 MG TAB PO SCH (08:07)
[2018-03-22] MEDS: CEFEPIME 1GM/50 ML (PMX) 50 ML IVPB SCH ×2 (08:08→20:02)
--- NOTE | 2018-03-22 08:25 | PN ---
Date/Time of Note Date/Time of Note DATE: 03/22/18 TIME: 08:25 Assessment/Plan VTE Prophylaxis Risk score (from Nsg)>0 risk: 4 SCD applied (from Nsg): Yes Pharmacological prophylaxis: other Lines/Catheters IV Catheter Type (from Nrsg): Peripheral IV Urinary Cath still in place: No Assessment/Plan Assessment/Plan 1. Acute altered level of consciousness 2/2 ?encephalitis- resolved - Patient back at baseline - Awaiting MRI results to rule out CVA - Neuro on board and concerned about encephalitis. LP ordered with fluid studies and started on antibiotics and antiviral. Unable to perform LP yesterday due to movement and will give a dose of Ativan prior to LP - Speech therapy consultation appreciated - PT/OT ordered 2. ?Status epilepticus- ruled out - EEG negative and Dilantin d/c - No seizure activity appreciated 3. UTI - Urine cx results noted. - remains afebrile this am - currently on antibiotics 4. CVA - does not appear to have new stroke like residual effects - MRI pending - continue monitoring neurological status 5. DM - A1c noted - ISS and accuchecks 6. HTN - Will resume home BP medications 7. h/o CVA with aphasia - per daughter nonverbal but able to understand mother via gestures 8. Disposition - Awaiting MRI and LP to assess for encephalitis vs recurrent strokes - PT/OT evaluation pending - Home BP medications restarted and adjust as needed Result Diagram: 03/22/18 0445 03/22/18 0445 Results 24hrs Laboratory Tests Test 03/21/18 09:13 03/21/18 13:38 03/21/18 16:19 03/21/18 17:36 Bedside Glucose 187 192 142 Magnesium Level 2.5 # Test 03/21/18 20:35 03/22/18 01:15 03/22/18 04:45 03/22/18 05:34 Bedside Glucose 208 165 157 White Blood 7.2 # Count Red Blood Count 3.61 L Hemoglobin 10.4 L Hematocrit 32.8 L Mean Corpuscular 90.9 Volume Mean Corpuscular 28.8 L Hemoglobin Mean Corpuscular 31.7 L Hemoglobin Ruthy nt Red Cell 13.8 Distribution Width Platelet Count 139 L Mean Platelet 11.4 H Volume Immature 0.400 Granulocytes % Neutrophils % 65.2 Lymphocytes % 26.2 Monocytes % 6.6 Eosinophils % 1.0 Basophils % 0.6 Nucleated Red 0.0 Blood Cells % Immature 0.030 Granulocytes # Neutrophils # 4.7 Lymphocytes # 1.9 Monocytes # 0.5 Eosinophils # 0.1 Basophils # 0.0 Nucleated Red 0.0 Blood Cells # Sodium Level 144 Potassium Level 3.8 Chloride Level 112 H Carbon Dioxide 25 Level Anion Gap 7 Blood Urea 13 Nitrogen Creatinine 1.03 H Glucose Level 157 Calcium Level 8.0 L Phosphorus Level 4.1 Magnesium Level 2.3 Albumin 3.1 L Test 03/22/18 08:13 Bedside Glucose 162 Subjective 24 Hr Interval Summary Free Text/Dictation Patient denies any acute issues. LP not performed due to patient not staying still during procedure. MRI to be performed today as well. Exam/Review of Systems Vital Signs Vitals Vital Signs Date Temp Pulse Resp B/P (MAP) Pulse Ox O2 O2 Flow FiO2 Time Delivery Rate 03/22/18 98.0 82 16 131/68 93 07:54 (89) 03/21/18 Room Air 11:00 03/21/18 2.0 06:00 Intake and Output 03/21/18 03/21/18 03/22/18 1515:00 23:00 07:00 IntakeIntake Total 637.5 ml 250 ml 50 ml OutputOutput Total 300 ml 350 ml 2200 ml BalanceBalance 337.5 ml -100 ml -2150 ml Exam General: Patient in no acute distress. following commands and answering yes and no questions HEENT: Atraumatic, normocephalic. The pupils are equal, round and reactive. no nystagmus appreciated Neck: Supple Chest: Nontender Lungs: Clear to auscultation bilaterally no crackles rales or wheezing Heart: Normal S1-S2, Regular rhythm and rate. No murmur, S3, or S4 Abdomen: Soft, non tender to palpation, nondistended. Bowel sounds are present. No guarding no rebound tenderness Extremities: Normal to inspection, no edema no cyanosis Neurologic: aphasic. moving all extremities and following commands, strength 4/5 all extremities and sensation intact. Medications Medications Current Medications Ondansetron HCl (Zofran Inj) 4 mg Q6H PRN IV NAUSEA AND/OR VOMITING; Start 03/20/18 at 09:00 Albuterol (Proventil 0.083% (Neb)) 2.5 mg Q2H RESP THERAPY PRN NEB SHORTNESS OF BREATH; Start 03/20/18 at 09:00 Acetaminophen (Tylenol Supp) 650 mg Q4H PRN AR PAIN LEVEL 1-3 OR FEVER; Start 03/20/18 at 09:00 Pantoprazole (Protonix Iv) 40 mg DAILY@06 IV Last administered on 03/22/18at 05:25; Admin Dose 40 MG; Start 03/21/18 at 06:00 Aspirin (Halfprin) 81 mg DAILY PO Last administered on 03/22/18at 08:07; Admin Dose 81 MG; Start 03/20/18 at 09:00 Atorvastatin Calcium (Lipitor) 80 mg QHS PO Last administered on 03/21/18at 20:27; Admin Dose 80 MG; Start 03/20/18 at 21:00 Insulin Aspart (Novolog Insulin Pen) NOVOLOG *MILD* ALGORI... Q4 SC Last adm inistered on 03/22/18at 06:00; Admin Dose 1 UNIT; Start 03/20/18 at 09:00 Miscellaneous Information 1 ea NOTE XX ; Start 03/20/18 at 09:30 Glucose (Glutose) 15 gm Q15M PRN PO DECREASED GLUCOSE; Start 03/20/18 at 09:30 Glucose (Glutose) 22.5 gm Q15M PRN PO DECREASED GLUCOSE; Start 03/20/18 at 0 9:30 Dextrose (D50w Syringe) 25 ml Q15M PRN IV DECREASED GLUCOSE; Start 03/20/18 at 09:30 Dextrose (D50w Syringe) 50 ml Q15M PRN IV DECREASED GLUCOSE; Start 03/20/18 at 09:30 Glucagon (Glucagen) 1 mg Q15M PRN IM DECREASED GLUCOSE; Start 03/20/18 at 09:30 Glucose (Glutose) 15 gm Q15M PRN BUCCAL DECREASED GLUCOSE; Start 03/20/18 at 09:30 Cefepime HCl 50 ml @ 100 mls/hr Q12 IVPB Last administered on 03/22/18at 08:08; Admin Dose 100 MLS/HR; Start 03/20/18 at 21:00 Acyclovir 500 mg/ Sodium Chloride 100 ml @ 100 mls/hr Q8H IVPB Last administered on 03/22/18at 05:25; Admin Dose 100 MLS/HR; Start 03/20/18 at 22:00 Vancomycin/Sodium Chloride 250 ml @ 125 mls/hr Q12H IVPB Last administered on 03/22/18at 00:28; Admin Dose 125 MLS/HR; Start 03/20/18 at 23:00 Potassium Chloride 50 ml @ 50 mls/hr K PROTOCOL PRN IVPB PENDING LAB VALUE; Start 03/21/18 at 09:00 Potassium Chloride/Sodium Chloride 1,000 ml @ 75 mls/hr [id number] IV Last administered on 03/21/18at 21:49; Admin Dose 75 MLS/HR; Start 03/21/18 at 09:00 Lorazepam (Ativan) 1 mg [id number] PRN IV seizures Last administered on 03/22/18at 00:27; Admin Dose 1 MG; Start 03/22/18 at 00:15 JACQUIE BAIRD MD Mar 22, 2018 08:25
[2018-03-22] MEDS: 1/2 NS + KCL 20 MEQ 1,000 ML IV SCH (10:33)
[2018-03-22] MEDS ORDERED: LORAZEPAM 4 MG/ML VIAL IV PRN (11:00)
[2018-03-22] MEDS: LABETALOL 100 MG TAB PO SCH (12:33)
[2018-03-22] MEDS: BENAZEPRIL 40 MG TAB PO SCH (12:34)
--- NOTE | 2018-03-22 14:29 | NUR ---
PT EVALUATION , joni 1 Evaluation Start Time 13:30 Evaluation Total Time 0 min Subjective Denies pain Pain Scale FACES Pain Intensity 0 (0-10) Patient Stated Goal for Pain Relief 0 (0-10) Pain Level Comment N/A Pre Treatment Vital Signs Stable Yes - BP:148/88 HR:77 Exercise Assessment Label Bilat Lower Extremity Exercise Type Active Assist ROM Additional Exercise Comments AP, KNEE FLEX, EXT, SAQ , SLR , ADD , ABD . Supine to Sit Maximum Assist Transfer Sit to Stand Ability Maximum Assist Bed Mobility Sit to Supine Maximum Assist Sitting Tolerance 20 min Patient uses wheelchair Not Applicable Gait Assist Levels Maximum Assist Assistive Devices Front Wheel Walker Additional Gait Comments 5 SIDE STEPS WITH MAX X1-2 Weight Bearing Assessment Label Bilat Lower Extremity Weight Bearing Status Full Weight Bearing Static Sitting Balance Fair Dynamic Sitting Balance Fair minus Standing Static Balance Fair minus Dynamic Standing Balance Poor plus Additional Balance Assessments Comments W/FWW Safety Judgement Fair Activity Tolerance Poor Equipment Present A pump IV pump Post Treatment Pain Intensity 0 0-10 Variance Documentation P/S SEE PT NOTE . Additional Post Treatment Comment FAMILY PRESENT TO ASSIST WITH TRANSLATION . PT Technical Record Comment PT EVALUATION , S: RN CLEARED , PATIENT APHASIC , FAMILY PRESENT ASSISTING WITH TRANSLATION , PATIENT ABLE TO FOLLOW ONE SIMPLE STEP COMMAND IN MAORI LANGUAGE , AND OCC.ABLE TO SAY SOME WORDS IN SPANISH ALSO. O: PATIENT IS A 67 Y/O FEMALE WITH PMH: DM , HTN , AND H.OF CVA IN 2012 AND NON-VERBAL SINCE THAT TIME , THE PATIENT ADMITTED TO [facility] DUE TO ACUTE ALTERED LEVEL OF CONSCIOUSNESS , CT BRAIN REVEALED LT PARTIAL OCCIPITAL LOBE ENCEPHALOMALACIA , AND AWAITING MRI RESULT TO R/O CVA. PATIENT FOUND IN BED , LETHARGIC , BUT AROUSE EASILY , OCC.HAVING DIFFICULTY TO FOLLOW ONE STEP COMMAND OR STAY AWAKE DURING PT SESSION , PATIENT REQUIRES MA X FOR BED MOBILITY , WITH MAX A SAT AT EOB : `20' NOTE STRONG LEANS TOWARD RT SIDE , WITH MAX A STOOD UP W/FWW AND ABLE TO TAKE 5 SMALL SIDE STEPS TOWARD THE HEAD OF BED , RETURNED BACK TO BED WITH MAX A , FAMILY PRESENT AND ASSISTING PT DURING PT ASSESSMENT, BP:148/88 HR:77 , TOLERATED TREATMENT FAIRLY . A: PER FAMILY REPORT PATIENT LIVES WITH AND HER DAUGHTER IN AN APARTMENT WITH ONE ENTRY STAIR , PATIENT HAS BEEN FUNCTIONAL AND IND.AMBULATOR WITHOUT AD , BUT APHASIC SINCE HER CVA IN 2012 , DC PLANNING PENDING PATIENT'S PROGRESS AND THE RESULT OF MRI , PATIENT MAY BENEFIT FRO ARU VS SNF /REHAB PLACEMENT ONCE CLEARED BY MD , IF FAMILY DECIDE TO TAKER HER HOME WILL NEED FWW , BED SIDE COMMODE AND W/C FOR COMMUNITY USE AND PT RECOMMEND PT FOLLOW UP . P: PT DAILY X6 ( BED MOBILITY TR, THERA EXE'S , TRANSFER TR, PRE-GAIT TR / GAIT TR W/FWW TO ABDIRIZAK, PATIENT EDUCATION AND FAMILY TRAINING ).
--- NOTE | 2018-03-22 14:52 | NUR ---
monitor technician called from mri. pt still agitated . 1 mg of lorazepam already given prior to going down. dr. luis made aware and ordered another dose of 1 mg loeazepam. went to mri and administered.
[2018-03-22] MEDS ORDERED: LORAZEPAM 4 MG/ML VIAL IV ONE (15:00)
[2018-03-22] MEDS: ATORVASTATIN 80 MG TAB PO SCH (19:54)
[2018-03-23] VITALS (16 sets, daily range): BP systolic 108–175; BP diastolic 60–83; PULSE 71–92; RESP 16–18
[2018-03-23] MEDS: INSULIN ASPART [NOVOLOG] 3 ML PEN SC SCH ×6 (01:00→22:01)
[2018-03-23] MEDS: 1/2 NS + KCL 20 MEQ 1,000 ML IV SCH ×2 (01:00→14:02)
[2018-03-23] MEDS: PANTOPRAZOLE 40 MG INJ IV SCH (05:07)
[2018-03-23] MEDS: ACYCLOVIR 500 MG in SOD CHLORIDE 0.9% 100 ML IVPB SCH ×3 (05:19→22:07)
[2018-03-23] MEDS: BENAZEPRIL 40 MG TAB PO SCH (08:38)
[2018-03-23] MEDS: LABETALOL 100 MG TAB PO SCH (08:38)
[2018-03-23] MEDS: ASPIRIN (EC) 81 MG TAB PO SCH (08:38)
[2018-03-23] MEDS: CEFEPIME 1GM/50 ML (PMX) 50 ML IVPB SCH ×2 (08:38→21:04)
[2018-03-23] MEDS: LORAZEPAM 4 MG/ML VIAL IV PRN (08:51)
[2018-03-23] MEDS ORDERED: LIDOCAINE 2% (SDV) 5 ML INJ ONE (08:54)
--- NOTE | 2018-03-23 11:24 | NUR ---
ST NOTE: pt seen for f/p with am tray; pt was being fed by her ; pt falling asleep; soft food pocketing in oral cavity; pt awoken and liquid wash given; educated not to feed at this time or when pt not fully awake or cognizant and fully able to participate. if need can downgrade if not angel luis for ground;
[2018-03-23] MEDS: hydrALAzine 20 MG INJ IV PRN (11:47)
[2018-03-23] MEDS: VANCOMYCIN 750 MG (PMX) 250 ML IVPB SCH ×2 (11:47→22:46)
--- NOTE | 2018-03-23 12:04 | CONS ---
Assessment/Plan Assessment/Plan Hospital Course 67 yo F with hx of CVA, HTN, and other comorbidities who presents with ams in the context of fevers, for which neurology is consulted. Most ominously concerning for encephalitis... Recurrent stroke is unlikely. MRI brain is most notable for subcortical white matter hyperintensities of nonspecific etiology.. MRA H/N is unremarkable EEG was notable for severe diffuse slowing, but was without evidence of epileptiform activity. CTH is without acute intracranial pathology... CTA H/N is unrevealing P: Await CSF studies Empiric antimicrobials per primary (including vancomycin and acyclovir) as renal function allows.. Agree w/ ASA/statin for secondary stroke prevention for now Hold Dilantin Ativan iv prn prolonged seizure.. Reorient as able Limit sedating medications where possible Other workup and medical management per primary Will follow clinically Result Diagram: 03/23/18 0442 03/23/18 0442 Results 24hrs Laboratory Tests Test 03/22/18 12:06 03/22/18 17:22 03/22/18 19:57 03/23/18 01:30 Bedside Glucose 172 185 230 H 140 Test 03/23/18 04:42 03/23/18 05:05 03/23/18 08:36 03/23/18 09:22 White Blood 6.6 Count Red Blood Count 3.26 L Hemoglobin 9.3 L Hematocrit 29.3 L Mean Corpuscular 89.9 Volume Mean Corpuscular 28.5 L Hemoglobin Mean Corpuscular 31.7 L Hemoglobin Ruhty nt Red Cell 13.9 Distribution Width Platelet Count 127 L Mean Platelet 11.5 H Volume Immature 0.200 Granulocytes % Neutrophils % 67.8 Lymphocytes % 24.0 Monocytes % 6.0 Eosinophils % 1.5 Basophils % 0.5 Nucleated Red 0.0 Blood Cells % Immature 0.010 Granulocytes # Neutrophils # 4.5 Lymphocytes # 1.6 Monocytes # 0.4 Eosinophils # 0.1 Basophils # 0.0 Nucleated Red 0.0 Blood Cells # Sodium Level 142 Potassium Level 3.5 Chloride Level 112 H Carbon Dioxide 25 Level Anion Gap 5 Blood Urea 12 Nitrogen Creatinine 0.91 Glucose Level 147 Calcium Level 8.0 L Phosphorus Level 3.6 Magnesium Level 2.1 Albumin 2.8 L Bedside Glucose 158 177 CSF Tubes 4 Submitted CSF Volume 4.5 CSF Appearance CLEAR CSF Color COLORLESS CSF WBC 4 CSF RBC 0 CSF Cell Count TUBE#1 Tube # CSF Mononuclear 75.0 Cells % (Auto) CSF Polynuclear 25.0 WBCs (%) CSF Glucose 92 H CSF Total 82 H Protein Test 03/23/18 11:45 Bedside Glucose 186 Consultation Date/Type/Reason Admit Date/Time Mar 20, 2018 at 08:28 Type of Consult Neurology Reason for Consultation ams; eval for status epilepticus Date/Time of Note DATE: 03/23/18 TIME: 12:04 24 HR Interval Summary Free Text/Dictation Continues telemetry monitoring. S/p LP. Pt is without complaints of headache, dizziness, weakness, confusion, numbness/tingling at this time. Exam Vital Signs Vitals Vital Signs Date Temp Pulse Resp B/P (MAP) Pulse Ox O2 O2 Flow FiO2 Time Delivery Rate 03/23/18 98.2 73 16 175/78 95 11:26 (110) 03/21/18 Room Air 11:00 03/21/18 2.0 06:00 Intake and Output 03/22/18 03/22/18 03/23/18 1515:00 23:00 07:00 IntakeIntake Total 1602 ml 800 ml 400 ml OutputOutput Total 900 ml 950 ml BalanceBalance 1602 ml -100 ml -550 ml SISSY HARRY NP Mar 23, 2018 12:04 KEVEN HASSAN Mar 23, 2018 20:39
--- NOTE | 2018-03-23 13:14 | NUR ---
OT NOTE OT order received, chart reviewed. Unable to perform OT eval at this time due to pt being on bedrest for the next 6 hrs. Will try back tomorrow.
--- NOTE | 2018-03-23 13:18 | NUR ---
PT NOTE: Patient s/p lumbar puncture, must lie flat for 6 hours, no treatment rendered, will f/u tomorrow.
--- NOTE | 2018-03-23 14:21 | PN ---
Date/Time of Note Date/Time of Note DATE: 03/23/18 TIME: 14:21 Objective Vitals Vital Signs Date Temp Pulse Resp B/P (MAP) Pulse Ox O2 O2 Flow FiO2 Time Delivery Rate 03/23/18 168/72 13:34 (104) 03/23/18 74 12:00 03/23/18 98.2 16 95 11:26 03/21/18 Room Air 11:00 03/21/18 2.0 06:00 Intake and Output 03/22/18 03/22/18 03/23/18 1515:00 23:00 07:00 IntakeIntake Total 1602 ml 800 ml 400 ml OutputOutput Total 900 ml 950 ml BalanceBalance 1602 ml -100 ml -550 ml Results Result Diagram: 03/23/1844103/23/18 0442 Medications Medications Current Medications Ondansetron HCl (Zofran Inj) 4 mg Q6H PRN IV NAUSEA AND/OR VOMITING; Start 03/20/18 at 09:00 Albuterol (Proventil 0.083% (Neb)) 2.5 mg Q2H RESP THERAPY PRN NEB SHORTNESS OF BREATH; Start 03/20/18 at 09:00 Acetaminophen (Tylenol Supp) 650 mg Q4H PRN ME PAIN LEVEL 1-3 OR FEVER; Start 03/20/18 at 09:00 Pantoprazole (Protonix Iv) 40 mg DAILY@06 IV Last administered on 03/23/18at 05:07; Admin Dose 40 MG; Start 03/21/18 at 06:00 Aspirin (Halfprin) 81 mg DAILY PO Last administered on 03/23/18at 08:38; Admin Dose 81 MG; Start 03/20/18 at 09:00 Atorvastatin Calcium (Lipitor) 80 mg QHS PO Last administered on 03/22/18at 19:54; Admin Dose 80 MG; Start 03/20/18 at 21:00 Insulin Aspart (Novolog Insulin Pen) NOVOLOG *MILD* ALGORI... Q4 SC Last administered on 03/23/18at 12:35; Admin Dose 2 UNIT; Start 03/20/18 at 09:00 Miscellaneous Information 1 ea NOTE XX ; Start 03/20/18 at 09:30 Glucose (Glutose) 15 gm Q15M PRN PO DECREASED GLUCOSE; Start 03/20/18 at 09:30 Glucose (Glutose) 22.5 gm Q15M PRN PO DECREASED GLUCOSE; Start 03/20/18 at 09:30 Dextrose (D50w Syringe) 25 ml Q15M PRN IV DECREASED GLUCOSE; Start 03/20/18 at 09:30 Dextrose (D50w Syringe) 50 ml Q15M PRN IV DECREASED GLUCOSE; Start 03/20/18 at 09:30 Glucagon (Glucagen) 1 mg Q15M PRN IM DECREASED GLUCOSE; Start 03/20/18 at 09:30 Glucose (Glutose) 15 gm Q15M PRN BUCCAL DECREASED GLUCOSE; Start 03/20/18 at 09:30 Cefepime HCl 50 ml @ 100 mls/hr Q12 IVPB Last administered on 03/23/18at 08:38; Admin Dose 100 MLS/HR; Start 03/20/18 at 21:00 Acyclovir 500 mg/ Sodium Chloride 100 ml @ 100 mls/hr Q8H IVPB Last admi nistered on 03/23/18at 14:02; Admin Dose 100 MLS/HR; Start 03/20/18 at 22:00 Vancomycin/Sodium Chloride 250 ml @ 125 mls/hr Q12H IVPB Last administered on 03/23/18at 11:47; Admin Dose 125 MLS/HR; Start 03/20/18 at 23:00 Potassium Chloride 50 ml @ 50 mls/hr K PROTOCOL PRN IVPB PENDING LAB VALUE; Start 03/21/18 at 09:00 Potassium Chloride/Sodium Chloride 1,000 ml @ 75 mls/hr [id number] IV Last a dministered on 03/23/18at 14:02; Admin Dose 75 MLS/HR; Start 03/21/18 at 09:00 Lorazepam (Ativan) 1 mg [id number] PRN IV seizures Last administered on 03/22/18at 23:25; Admin Dose 1 MG; Start 03/22/18 at 00:15 Lorazepam (Ativan) 1 mg PRN PRN IV prior to MRI and LP Last administered on 03/23/18at 08:51; Admin Dose 1 MG; Start 03/22/18 at 12:00; Stop 03/23/18 at 23:59 Hydralazine HCl (Apresoline) 10 mg Q6 PRN IV SBP >170 Last administered on 03/23/18at 11:47; Admin Dose 10 MG; Start 03/22/18 at 12:00 Benazepril HCl (Lotensin) 40 mg DAILY PO Last administered on 03/23/18at 08:38; Admin Dose 40 MG; Start 03/22/18 at 12:00 Labetalol HCl (Normodyne) 50 mg QAM PO Last administered on 03/23/18at 08:38; Admin Dose 50 MG; Start 03/22/18 at 12:00 VTE Prophylaxis Risk score (from Ns)>0 risk: 7 SCD applied (from [facility]): Yes Lines/Catheters IV Catheter Type: Last in Place: No Assessment/Plan Hospital Course Subjective Patient doing well after LP, is still drowsy from the Ativan from the LP but is able to converse, family at bedside saying that she has been improving daily and cognition Objective Physical exam General: Patient is laying in bed and answers questions appropriately Mentation: Patient is alert and oriented 4, Head: Normocephalic atraumatic Eyes: EOMI, pupils reactive to light Neck: Supple, nontender, midline Respiratory: Clear to auscultation bilaterally Cardiovascular: regular rate, no obvious murmurs Gastrointestinal: non-tender to palpation, bowel sounds heard. Neurological: Moves all extremities spontaneously Skin: No new skin lesions Assessment/Plan 1. Acute altered level of consciousness 2/2 ?encephalitis- resolved - Patient back at baseline - MRI noted - Neuro on board and concerned about encephalitis. LP ordered with fluid studies pending and started on antibiotics and antiviral. - Speech therapy consultation appreciated - PT/OT ordered 2. ?Status epilepticus- ruled out - EEG negative and Dilantin d/c - No seizure activity appreciated 3. UTI - Urine cx results noted. - remains afebrile this am - currently on antibiotics 4. questionable new CVA - does not appear to have new stroke like residual effects - MRI noted - continue monitoring neurological status 5. DM - A1c noted - ISS and accuchecks 6. HTN - Will resume home BP medications 7. h/o CVA with aphasia? - per daughter nonverbal but able to understand mother via gestures, patient able to converse simple words such as "albina, richard" 8. Disposition - LP results pending - Home BP medications restarted and adjust as needed BONNY QUIROS Mar 23, 2018 14:21
--- NOTE | 2018-03-23 18:29 | NUR ---
EOSS: Patient is AAOx1, lethargic but arousable during shift, able to follow simple commands. Croatian speaking. BP elevated 170s during shift - Hydralazine IV administered x1. LP done today. Hourly rounding done, fall precautions initiated, all needs attended to. Repositioned q2h. Pt is stable - will endorse to oncoming shift.
[2018-03-23] MEDS: ATORVASTATIN 80 MG TAB PO SCH (21:03)
[2018-03-24] VITALS (14 sets, daily range): BP systolic 129–183; BP diastolic 60–86; PULSE 73–97; RESP 18–20
[2018-03-24] MEDS: INSULIN ASPART [NOVOLOG] 3 ML PEN SC SCH ×6 (01:00→21:29)
[2018-03-24] MEDS: hydrALAzine 20 MG INJ IV PRN (03:31)
[2018-03-24] MEDS: 1/2 NS + KCL 20 MEQ 1,000 ML IV SCH ×2 (03:40→17:19)
[2018-03-24] MEDS: PANTOPRAZOLE 40 MG INJ IV SCH (05:40)
[2018-03-24] MEDS: ACYCLOVIR 500 MG in SOD CHLORIDE 0.9% 100 ML IVPB SCH ×2 (05:40→14:20)
--- NOTE | 2018-03-24 06:59 | NUR ---
Pt still confused. Unable to comprehend. Unable to follow safety instructions. Had pulled out her gambling monitor leads multiple times. VS stable. BP on high side Sinus rhythm on monitor Tolerated thin liquid with whole pills. No complaints of pain Fall precautions implemented Hourly rounding done
--- NOTE | 2018-03-24 07:29 | NUR ---
RE: Vancomycin level Vancomycin trough = 16.6 SCr 0.75 Continue Vancomycin 750 mg IV q12h
[2018-03-24] MEDS: CEFEPIME 1GM/50 ML (PMX) 50 ML IVPB SCH ×2 (08:32→21:18)
[2018-03-24] MEDS: LABETALOL 100 MG TAB PO SCH (08:33)
[2018-03-24] MEDS: ASPIRIN (EC) 81 MG TAB PO SCH (08:33)
[2018-03-24] MEDS: BENAZEPRIL 40 MG TAB PO SCH (08:34)
[2018-03-24] MEDS: VANCOMYCIN 750 MG (PMX) 250 ML IVPB SCH (11:55)
--- NOTE | 2018-03-24 12:26 | CONS ---
Assessment/Plan Assessment/Plan Hospital Course 67 yo F with hx of CVA, HTN, and other comorbidities who presents with ams in the context of fevers, for which neurology is consulted. Most ominously concerning for encephalitis... Recurrent stroke is unlikely. MRI brain is most notable for subcortical white matter hyperintensities of nonspecific etiology.. MRA H/N is unremarkable EEG was notable for severe diffuse slowing, but was without evidence of epileptiform activity. CTH is without acute intracranial pathology... CTA H/N is unrevealing P: Await CSF studies Empiric antimicrobials per primary (including vancomycin and acyclovir) as renal function allows.. Agree w/ ASA/statin for secondary stroke prevention for now Hold Dilantin Ativan iv prn prolonged seizure.. Reorient as able Limit sedating medications where possible Other workup and medical management per primary Will follow clinically Result Diagram: 03/24/18 0429 03/24/18 0429 Results 24hrs Laboratory Tests Test 03/23/18 17:29 03/23/18 21:09 03/23/18 22:24 03/24/18 02:11 Bedside Glucose 237 H 220 176 Vancomycin Level 16.6 Trough Test 03/24/18 04:29 03/24/18 08:09 White Blood Count 7.8 Red Blood Count 3.72 L Hemoglobin 10.7 L Hematocrit 33.2 L Mean Corpuscular 89.2 Volume Mean Corpuscular 28.8 L Hemoglobin Mean Corpuscular 32.2 Hemoglobin Concent Red Cell 13.5 Distribution Width Platelet Count 146 Mean Platelet 11.2 H Volume Immature 0.500 H Granulocytes % Neutrophils % 69.7 Lymphocytes % 22.4 Monocytes % 5.2 Eosinophils % 1.9 Basophils % 0.3 Nucleated Red 0.0 Blood Cells % Immature 0.040 H Granulocytes # Neutrophils # 5.5 Lymphocytes # 1.8 Monocytes # 0.4 Eosinophils # 0.2 Basophils # 0.0 Nucleated Red 0.0 Blood Cells # Sodium Level 141 Potassium Level 3.5 Chloride Level 110 Carbon Dioxide 25 Level Anion Gap 6 Blood Urea 11 Nitrogen Creatinine 0.75 Est Glomerular > 60 Filtrat Rate mL/min Glucose Level 199 Calcium Level 8.7 Phosphorus Level 3.3 Magnesium Level 1.8 Bedside Glucose 257 H Consultation Date/Type/Reason Admit Date/Time Mar 20, 2018 at 08:28 Type of Consult Neurology Reason for Consultation ams; eval for status epilepticus Date/Time of Note DATE: 03/24/18 TIME: 12:26 24 HR Interval Summary Free Text/Dictation Continues telemetry monitoring. Pt states that she has a mild headache but is otherwise without complaints today. Exam Vital Signs Vitals Vital Signs Date Temp Pulse Resp B/P (MAP) Pulse Ox O2 O2 Flow FiO2 Time Delivery Rate 03/24/18 85 12:00 03/24/18 97.9 20 169/76 94 11:05 (107) 03/21/18 Room Air 11:00 03/21/18 2.0 06:00 Intake and Output 03/23/18 03/23/18 03/24/18 1515:00 23:00 07:00 IntakeIntake Total 2200 ml 1070 ml OutputOutput Total 1300 ml 2500 ml BalanceBalance 900 ml -1430 ml Exam PE: Gen Appearance: No Apparent Distress HEENT: Normocephalic Cardiovascular: Regular rate Lungs: Clear bilaterally Abdomen: Soft Extremities: Dry NE: The patient was alert and oriented. Nonverbal. Able to follow both axial and a ppendicular commands. Pupils were equal and reactive to light. There was no afferent pupillary defect. Visual caldwell were normal. Funduscopic examination was limited. Extra-ocular movements were full. Ptosis was absent. There was no nystagmus. Facial sensation was normal. Face was symmetric with normal strength. Hearing was intact. Palate movements were normal. Neck strength was normal. There was normal tongue bulk and speed of movement. Tone was normal. Muscle bulk was normal. I did not see fasciculations. Arms and legs were antigravity Vibration sensation was normal. Temperature and pinprick sensation was normal. Rapid alternating movements were normal. There was no dysmetria. There was no intention tremor. Gait was deferred due to bedrest. Arm and leg reflexes were 2+ and symmetric. Arenas's sign was absent. Plantar responses were extensor. SISSY HARRY NP Mar 24, 2018 12:26 KEVEN HASSAN Mar 25, 2018 06:30
--- NOTE | 2018-03-24 13:27 | PN ---
Date/Time of Note Date/Time of Note DATE: 03/24/18 TIME: 13:25 Objective Vitals Vital Signs Date Temp Pulse Resp B/P (MAP) Pulse Ox O2 O2 Flow FiO2 Time Delivery Rate 03/24/18 85 12:00 03/24/18 97.9 20 169/76 94 11:05 (107) 03/21/18 Room Air 11:00 03/21/18 2.0 06:00 Intake and Output 03/23/18 03/23/18 03/24/18 1515:00 23:00 07:00 IntakeIntake Total 2200 ml 1070 ml OutputOutput Total 1300 ml 2500 ml BalanceBalance 900 ml -1430 ml Results Result Diagram: 03/24/189 03/24/189 Medications Medications Current Medications Ondansetron HCl (Zofran Inj) 4 mg Q6H PRN IV NAUSEA AND/OR VOMITING; Start 03/20/18 at 09:00 Albuterol (Proventil 0.083% (Neb)) 2.5 mg Q2H RESP THERAPY PRN NEB SHORTNESS OF BREATH; Start 03/20/18 at 09:00 Acetaminophen (Tylenol Supp) 650 mg Q4H PRN [place] PAIN LEVEL 1-3 OR FEVER; Start 03/20/18 at 09:00 Pantoprazole (Protonix Iv) 40 mg DAILY@06 IV Last administered on 03/24/18at 05:40; Admin Dose 40 MG; Start 03/21/18 at 06:00 Aspirin (Halfprin) 81 mg DAILY PO Last administered on 03/24/18at 08:33; Admin Dose 81 MG; Start 03/20/18 at 09:00 Atorvastatin Calcium (Lipitor) 80 mg QHS PO Last administered on 03/23/18at 21:03; Admin Dose 80 MG; Start 03/20/18 at 21:00 Insulin Aspart (Novolog Insulin Pen) NOVOLOG *MILD* ALGORI... Q4 SC Last admi nistered on 03/24/18at 13:04; Admin Dose 4 UNIT; Start 03/20/18 at 09:00 Miscellaneous Information 1 ea NOTE XX ; Start 03/20/18 at 09:30 Glucose (Glutose) 15 gm Q15M PRN PO DECREASED GLUCOSE; Start 03/20/18 at 09:30 Glucose (Glutose) 22.5 gm Q15M PRN PO DECREASED GLUCOSE; Start 03/20/18 at 09:30 Dextrose (D50w Syringe) 25 ml Q15M PRN IV DECREASED GLUCOSE; Start 03/20/18 at 09:30 Dextrose (D50w Syringe) 50 ml Q15M PRN IV DECREASED GLUCOSE; Start 03/20/18 at 09:30 Glucagon (Glucagen) 1 mg Q15M PRN IM DECREASED GLUCOSE; Start 03/20/18 at 09:30 Glucose (Glutose) 15 gm Q15M PRN BUCCAL DECREASED GLUCOSE; Start 03/20/18 at 09:30 Cefepime HCl 50 ml @ 100 mls/hr Q12 IVPB Last administered on 03/24/18 08:32; Admin Dose 100 MLS/HR; Start 03/20/18 at 21:00 Acyclovir 500 mg/ Sodium Chloride 100 ml @ 100 mls/hr Q8H IVPB Last administered on 03/24/18 05:40; Admin Dose 100 MLS/HR; Start 03/20/18 at 22:00 Vancomycin/Sodium Chloride 250 ml @ 125 mls/hr Q12H IVPB Last administered on 03/24/18 11:55; Admin Dose 125 MLS/HR; Start 03/20/18 at 23:00 Potassium Chloride 50 ml @ 50 mls/hr K PROTOCOL PRN IVPB PENDING LAB VALUE; Start 03/21/18 at 09:00 Potassium Chloride/Sodium Chloride 1,000 ml @ 75 mls/hr [id number] IV Last administered on 03/23/18at 14:02; Admin Dose 75 MLS/HR; Start 03/21/18 at 09:00 Lorazepam (Ativan) 1 mg [id number] PRN IV seizures Last administered on 03/22/18 at 23:25; Admin Dose 1 MG; Start 03/22/18 at 00:15 Hydralazine HCl (Apresoline) 10 mg Q6 PRN IV SBP >170 Last administered on 03/24/18 03:31; Admin Dose 10 MG; Start 03/22/18 at 12:00 Benazepril HCl (Lotensin) 40 mg DAILY PO Last administered on 03/24/18 08:34; Admin Dose 40 MG; Start 03/22/18 at 12:00 Labetalol HCl (Normodyne) 50 mg QAM PO Last administered on 03/24/18at 08:33; Admin Dose 50 MG; Start 03/22/18 at 12:00 VTE Prophylaxis Risk score (from Nsg)>0 risk: 4 SCD applied (from Ns): Yes Lines/Catheters IV Catheter Type: Last in Place: No Assessment/Plan Hospital Course Subjective patient had no acute overnight events Objective Physical exam General: Patient is laying in bed and answers questions appropriately Mentation: Patient is alert and oriented 4, Head: Normocephalic atraumatic Eyes: EOMI, pupils reactive to light Neck: Supple, nontender, midline Respiratory: Clear to auscultation bilaterally Cardiovascular: regular rate, no obvious murmurs Gastrointestinal: non-tender to palpation, bowel sounds heard. Neurological: Moves all extremities spontaneously Skin: No new skin lesions Assessment/Plan 1. Acute altered level of consciousness 2/2 ?encephalitis- resolved - Patient back at what appears to be near ?baseline - MRI noted - Neuro on board and concerned about encephalitis. LP done fluid studies pending and on antibiotics and antiviral. - Speech therapy - PT/OT ordered 2. ?Status epilepticus- ruled out - EEG negative and Dilantin d/c - No seizure activity appreciated 3. UTI - Urine cx results noted. - remains afebrile this am - currently on antibiotics 4. questionable new CVA - does not appear to have new stroke-like residual effects - MRI noted - continue monitoring neurological status 5. DM - A1c noted - ISS and accuchecks 6. HTN - Will resume home BP medications 7. h/o CVA with aphasia? - per daughter nonverbal but able to understand mother via gestures, patient able to converse simple words such as "albina, richard" 8. Disposition - LP culture pending, fluid not very helpful so far - Home BP medications restarted and adjust as needed BONNY QUIROS Mar 24, 2018 13:27
[2018-03-24] MEDS: ATORVASTATIN 80 MG TAB PO SCH (21:18)
[2018-03-25] VITALS (15 sets, daily range): BP systolic 133–186; BP diastolic 67–83; PULSE 68–98; RESP 18–20
[2018-03-25] MEDS: ACYCLOVIR 500 MG in SOD CHLORIDE 0.9% 100 ML IVPB SCH ×2 (00:41→05:31)
[2018-03-25] MEDS: VANCOMYCIN 750 MG (PMX) 250 ML IVPB SCH ×2 (01:50→10:21)
[2018-03-25] MEDS: INSULIN ASPART [NOVOLOG] 3 ML PEN SC SCH ×3 (02:00→08:04)
[2018-03-25] MEDS: PANTOPRAZOLE 40 MG INJ IV SCH (05:30)
[2018-03-25] MEDS: 1/2 NS + KCL 20 MEQ 1,000 ML IV SCH (06:20)
--- NOTE | 2018-03-25 06:34 | NUR ---
EOSS: Patient alert and oriented x1, is confused, and unable to comprehend. Patient repeatedly pulled out her heart monitor leads, and pulled out peripheral IV. Patient frequently reoriented. Bed alarms activated, no injury during shift- hourly rounding done. No other discomfort or distress noted. Vitals currently stable, BP is on high side. All other needs anticipated and met. Will continue to monitor and endorse to oncoming shift.
--- NOTE | 2018-03-25 07:55 | NUR ---
PT NOTE Therapy day number 3 Subjective Denies pain Pain Scale NUMERIC Pain Intensity 0 (0-10) Patient Stated Goal for Pain Relief 0 (0-10) Pain Level Comment denies pain Pre Treatment Vital Signs Stable Yes Exercise Assessment Label Bilat Lower Extremity Exercise Type Active Assist ROM Additional Exercise Comments bed mob train with BR, STS x5 with PHYSIOTHERAPY ASSISTANT Exercise Start Time 07:55 Exercise End Time 08:10 Total Exercise Time 15 min (8-127) Transfer Training Start Time 08:10 Supine to Sit Moderate Assist Transfer Sit to Stand Ability Moderate Assist Bed Mobility Sit to Supine Moderate Assist Sitting Tolerance 20 min Additional Mobility Comments Max VC/TC fr hand place/sequenc/initiation of mobility Transfer Training End Time 08:35 Total Transfer Training Time 25 min (8-127) Gait Training Start Time 08:35 Gait Assist Levels Moderate Assist Assistive Devices Front Wheel Walker Ambulation Distance 120 feet Additional Gait Comments + 10' no AD PHYSIOTHERAPY ASSISTANT +2P, ModA for steer/FWW at safe dist, ModA to decr tyrese Gait Training End Time 08:48 Total Gait Training Treatment Time 13 min (8-127) Weight Bearing Assessment Label Bilat Lower Extremity Weight Bearing Status Full Weight Bearing Static Sitting Balance Fair Dynamic Sitting Balance Fair minus Standing Static Balance Fair minus Dynamic Standing Balance Fair minus Additional Balance Assessments Comments With FWW Safety Judgement Fair Activity Tolerance Fair Equipment Present A pump Last Catheter IV pump Post Treatment Pain Intensity 0 0-10 Additional Post Treatment Comment See Below Total Treament Time 53 min (8-127) Total Minutes 53 Total Units 4 PT Technical Record Comment PT NOTE S: Pt agreeable and to PT, denying pain or dizziness. Cleared for PT per POPEYE Knutson C. O: Pt received semifowler in bed, alert and appropriate, in no apparent distress, present in room, following one step commands 25% of time. Performed PT tx as co-treatment with OT due to pt's decreased tolerance for tx. Performed thera ex, transfer tr and gait tr per tech record above with ModA +2P for safety, using FWW and PHYSIOTHERAPY ASSISTANT. Pt with reciprocal gait, flexed posture, veering L, not following VC/TC for upright posture/decreased tryese/FWW at safe distance, no LOB/buckling. Attempted gait training with PHYSIOTHERAPY ASSISTANT +2P, no AD: increased postural sway, continued veering L. Performed hand hygeniene at sink with CGA FWW. Performed balance training sitting at EOB with and without BUE support. Josette for bed mobility with 100% TC/VC for hand placment/ sequencing/ initiation. Pt BTB and positioned for comfort post tx with call light and needs in reach, bed alarm armed, present in room, pt in no apparent distress, CN updated re pt status. A: Pt elana tx fairly, limited by decreased cognition, decreased dynamic balance/midline orientation, decreased safety awareness. Pt will benefit from FWW if DC'd home. P: Cont POC
[2018-03-25] MEDS: ASPIRIN (EC) 81 MG TAB PO SCH (08:00)
[2018-03-25] MEDS: CEFEPIME 1GM/50 ML (PMX) 50 ML IVPB SCH (08:00)
[2018-03-25] MEDS: BENAZEPRIL 40 MG TAB PO SCH (08:01)
[2018-03-25] MEDS: LABETALOL 100 MG TAB PO SCH (08:01)
--- NOTE | 2018-03-25 08:10 | NUR ---
OT EVALUATION , PATIENT IS A 67 Y/O FEMALE WITH PMH: DM , HTN , AND H.OF CVA IN 2012 AND NON-VERBAL SINCE THAT TIME , THE PATIENT ADMITTED TO [facility] DUE TO ACUTE ALTERED LEVEL OF CONSCIOUSNESS , CT BRAIN REVEALED LT PARTIAL OCCIPITAL LOBE ENCEPHALOMALACIA , PLOF :PER FAMILY REPORT PATIENT LIVES WITH AND HER DAUGHTER IN AN APARTMENT WITH ONE ENTRY STAIR , PATIENT HAS BEEN INDEPENDENT WITH ADL'S AND AMBULATOR. CLOF: RN CLEARED PT FOR SKILLED OT TX. PT RECEIVED SUPINE IN BED WITH BY HER SIDE. PT AOX2 (PERSON, PLACE) AND DEMONSTRATED BUE AROM WFL/ MMT 05/26.PATIENT APHASIC , FAMILY PRESENT ASSISTING WITH TRANSLATION , PATIENT ABLE TO FOLLOW ONE SIMPLE STEP COMMAND IN [place] LANGUAGE , AND OCC.ABLE TO SAY SOME WORDS IN [place]. PT PERFORMED SUPINE ->SIT AT EOB WITH MIN A. PT DEMONSTRATED F- SITTING BALANCE PT TENDS TO FALL FORWARD AND REQUIRES VERBAL AND TACTILE CUEING TO BALANCE HERSELF. WHILE SEATED AT EOB PT REQUIRED TOTAL A TO MAGNO SOCKS AND MIN A TO MAGNO AND DOFF GOWN. PT PERFORMED SPONGE BATH WITH VC AND CGA. PT DEMONSTRATED STS AND FUNCTIONAL MOB USING FWW WITH MIN/ CGA . PT TENDS TO JAVID TOWARDS THE RIGHT AND REQUIRES MANUAL CUEING TO ADJUST FWW. PT STOOD AT BATHROOM SINK WITH CGA WHILE PERFORMING H/G. PT REQUIRED MIN A TO RETURN TO BED. PT LEFT SUPINE IN BED WITH ALL NEEDS MET. RN NOTIFIED. RECOMMENDATIONS: PT WILL BENEFIT FROM SKILLED OT TX 1X DAILY FOR 3-5X WEEK FOR THER EX, THER ACT, SELF CARE, SAFETY AWARENESS AND BALANCE TRAINING. PATIENT MAY BENEFIT FRO ARU VS SNF /REHAB PLACEMENT ONCE CLEARED BY , IF FAMILY DECIDE TO TAKER HER HOME WILL NEED FWW , BED SIDE COMMODE AND W/C FOR COMMUNITY USE AND PT RECOMMEND PT FOLLOW UP .
[2018-03-25] MEDS: NIFEdipine (XL) 30 MG TAB PO SCH (10:24)
--- NOTE | 2018-03-25 10:25 | CONS ---
Assessment/Plan Assessment/Plan Hospital Course 67 yo F with hx of CVA, HTN, and other comorbidities who presents with ams in the context of fevers, for which neurology is consulted. UCx + EColi.. Most clinically consistent w/ an acute toxic-metabolic on chronic encephalopathy.. MRI brain is most notable for subcortical white matter hyperintensities of nonspecific etiology.. MRA H/N is unremarkable EEG was notable for severe diffuse slowing, but was without evidence of epileptiform activity. CSF evaluation is unremarkable.. P: Continued medical management and supportive care per primary Agree w/ ASA/statin for secondary stroke prevention Hold Dilantin Reorient as able Limit sedating medications where possible PT/OT/ST as necessary Will follow clinically Result Diagram: 03/25/18 0434 03/25/18 0434 Results 24hrs Laboratory Tests Test 03/24/18 12:59 03/24/18 17:10 03/24/18 21:19 03/25/18 01:55 Bedside Glucose 282 H 224 H 243 H 191 Test 03/25/18 04:34 03/25/18 05:29 03/25/18 07:31 White Blood Count 7.7 Red Blood Count 3.58 L Hemoglobin 10.3 L Hematocrit 32.1 L Mean Corpuscular Volume 89.7 Mean Corpuscular 28.8 L Hemoglobin Mean Corpuscular 32.1 Hemoglobin Concent Red Cell Distribution 13.7 Width Platelet Count 160 Mean Platelet Volume 11.5 H Immature Granulocytes % 0.400 Neutrophils % 68.7 Lymphocytes % 21.4 Monocytes % 6.8 Eosinophils % 2.3 Basophils % 0.4 Nucleated Red Blood 0.0 Cells % Immature Granulocytes # 0.030 Neutrophils # 5.3 Lymphocytes # 1.7 Monocytes # 0.5 Eosinophils # 0.2 Basophils # 0.0 Nucleated Red Blood 0.0 Cells # Sodium Level 144 Potassium Level 3.8 Chloride Level 107 Carbon Dioxide Level 27 Anion Gap 10 Blood Urea Nitrogen 14 Creatinine 0.83 Est Glomerular Filtrat > 60 Rate mL/min Glucose Level 172 Calcium Level 8.7 Phosphorus Level 4.0 Magnesium Level 1.7 Bedside Glucose 175 184 Consultation Date/Type/Reason Admit Date/Time Mar 20, 2018 at 08:28 Type of Consult Neurology Reason for Consultation ams Requesting Provider: JACQUIE BAIRD MD Date/Time of Note DATE: 03/25/18 TIME: 10:25 24 HR Interval Summary Free Text/Dictation Continues acute care Exam Vital Signs Vitals Vital Signs Date Temp Pulse Resp B/P (MAP) Pulse Ox O2 O2 Flow FiO2 Time Delivery Rate 03/25/18 133/79 10:24 (97) 03/25/18 94 08:00 03/25/18 98.3 18 94 Room Air 07:25 Intake and Output 03/24/18 03/24/18 03/25/18 1515:00 23:00 07:00 IntakeIntake Total 240 ml 260 ml OutputOutput Total 1600 ml BalanceBalance 240 ml -1340 ml Exam PE: Gen Appearance: No Apparent Distress HEENT: Normocephalic Cardiovascular: Regular rate Abdomen: Soft Extremities: Dry NE: The patient was alert, though dysphasic. Cranial nerve examination was limited by mental status. Pupils were equal and reactive to light. There was no afferent pupillary defect. Funduscopic examination was limited. Face was grossly symmetric, w/ present corneal reflexes. Tone was normal. Muscle bulk was normal. I did not see fasciculations. The patient moved her limbs symmetrically.. Coordination and gait testing was limited by mental status. Arm and leg reflexes were symmetric. Arenas's sign was absent. Plantar responses were flexor. KEVEN HASSAN Mar 25, 2018 10:25
[2018-03-25] MEDS ORDERED: INSULIN ASPART [NOVOLOG] 3 ML PEN SC SCH (11:30)
--- NOTE | 2018-03-25 11:50 | NUR ---
CM NOTE RECEIVED AN ORDER TO ARRANGE FOR HOME HEALTH AND FWW, CM FORWARDED ORDER TO LOUISE WOLFF [facility], AND FAX [phone] AND WILL FOLLOW UP WITH HER.
[2018-03-25] MEDS: Insulin NOVOLOG SS MILD Algorithm (SS with meals and bedtime) SC SCH ×3 (12:14→20:12)
--- NOTE | 2018-03-25 14:10 | PN ---
Date/Time of Note Date/Time of Note DATE: 03/25/18 TIME: 14:10 Objective Vitals Vital Signs Date Temp Pulse Resp B/P (MAP) Pulse Ox O2 O2 Flow FiO2 Time Delivery Rate 03/25/18 83 12:00 03/25/18 98.1 20 147/79 96 Room Air 11:55 (101) Intake and Output 03/24/18 03/24/18 03/25/18 1515:00 23:00 07:00 IntakeIntake Total 240 ml 260 ml OutputOutput Total 1600 ml BalanceBalance 240 ml -1340 ml Results Result Diagram: 03/25/18 0434 03/25/18 0434 Medications Medications Current Medications Ondansetron HCl (Zofran Inj) 4 mg Q6H PRN IV NAUSEA AND/OR VOMITING; Start 03/20/18 at 09:00 Albuterol (Proventil 0.083% (Neb)) 2.5 mg Q2H RESP THERAPY PRN NEB SHORTNESS OF BREATH; Start 03/20/18 at 09:00 Acetaminophen (Tylenol Supp) 650 mg Q4H PRN NC PAIN LEVEL 1-3 OR FEVER; Start 03/20/18 at 09:00 Pantoprazole (Protonix Iv) 40 mg DAILY@06 IV Last administered on 03/25/18 05:30; Admin Dose 40 MG; Start 03/21/18 at 06:00 Aspirin (Halfprin) 81 mg DAILY PO Last administered on 03/25/18at 08:00; Admin Dose 81 MG; Start 03/20/18 at 09:00 Atorvastatin Calcium (Lipitor) 80 mg QHS PO Last administered on 03/24/18at 21:18; Admin Dose 80 MG; Start 03/20/18 at 21:00 Miscellaneous Information 1 ea NOTE XX ; Start 03/20/18 at 09:30 Glucose (Glutose) 15 gm Q15M PRN PO DECREASED GLUCOSE; Start 03/20/18 at 09:30 Glucose (Glutose) 22.5 gm Q15M PRN PO DECREASED GLUCOSE; Start 03/20/18 at 09:30 Dextrose (D50w Syringe) 25 ml Q15M PRN IV DECREASED GLUCOSE; Start 03/20/18 at 09:30 Dextrose (D50w Syringe) 50 ml Q15M PRN IV DECREASED GLUCOSE; Start 12/28/18 at 09:30 Glucagon (Glucagen) 1 mg Q15M PRN IM DECREASED GLUCOSE; Start 03/20/18 at 09:30 Glucose (Glutose) 15 gm Q15M PRN BUCCAL DECREASED GLUCOSE; Start 03/20/18 at 09:30 Potassium Chloride 50 ml @ 50 mls/hr K PROTOCOL PRN IVPB PENDING LAB VALUE; Start 03/21/18 at 09:00 Lorazepam (Ativan) 1 mg [id number] PRN IV seizures Last administered on at 23:25; Admin Dose 1 MG; Start 03/22/18 at 00:15 Hydralazine HCl (Apresoline) 10 mg Q6 PRN IV SBP >170 Last administered on 03/24/18 03:31; Admin Dose 10 MG; Start 03/22/18 at 12:00 Benazepril HCl (Lotensin) 40 mg DAILY PO Last administered on 03/25/18 08:01; Admin Dose 40 MG; Start 03/22/18 at 12:00 Labetalol HCl (Normodyne) 50 mg QAM PO Last administered on 03/25/18 08:01; Admin Dose 50 MG; Start 03/22/18 at 12:00 Nifedipine (Procardia Xl) 30 mg DAILY PO Last administered on 03/25/18 10:24; Admin Dose 30 MG; Start 03/25/18 at 09:30 Insulin Aspart (Novolog Insulin Pen) (Adult SC Insulin - Mild Algorithm)... AC MEALS AND BEDTIME SC Last administered on 03/25/18 12:14; Admin Dose 3 UNIT; Start 03/25/18 at 11:30 VTE Prophylaxis Risk score (from Nsg)>0 risk: 5 SCD applied (from Nsg): Yes Lines/Catheters IV Catheter Type: Last in Place: No Assessment/Plan Hospital Course Subjective patient had no acute overnight events Objective Physical exam General: Patient is laying in bed and answers questions appropriately Mentation: Patient is alert and oriented 4, Head: Normocephalic atraumatic Eyes: EOMI, pupils reactive to light Neck: Supple, nontender, midline Respiratory: Clear to auscultation bilaterally Cardiovascular: regular rate, no obvious murmurs Gastrointestinal: non-tender to palpation, bowel sounds heard. Neurological: Moves all extremities spontaneously Skin: No new skin lesions Assessment/Plan 1. Acute altered level of consciousness 2/2 ?encephalitis- resolved - Patient back at what appears to be near ?baseline - MRI noted - Neuro on board and concerned about encephalitis. LP done fluid studies pending and on antibiotics and antiviral. - Speech therapy - PT/OT ordered 2. ?Status epilepticus- ruled out - EEG negative and Dilantin d/c - No seizure activity appreciated 3. UTI - Urine cx results noted. - remains afebrile this am - currently on antibiotics 4. questionable new CVA - does not appear to have new stroke-like residual effects - MRI noted - continue monitoring neurological status 5. DM - A1c noted - ISS and accuchecks 6. HTN - Will resume home BP medications 7. h/o CVA with aphasia? - per daughter nonverbal but able to understand mother via gestures, patient able to converse simple words such as "albina, richard" 8. Disposition - stopping fluids, adjusting bp meds, if stable, possible DC tomorrow with HHPT and FWW BONNY QUIROS Mar 25, 2018 14:10
--- NOTE | 2018-03-25 18:22 | NUR ---
EOSS: Pt is stable, VS are WNL. Blood pressure is more controlled throughout the shift. Blood sugar is a little elevated. Dr Nix is notified, no new order was received. Pt is still disoriented, Pulled out 2 IVs throughout the shift, IV access was wrapped. Family is at the bedside. Pt is encouraged to turn and reposition Q2H. DC Planning. will endorse the care to night order selector nurse.
[2018-03-25] MEDS: ATORVASTATIN 80 MG TAB PO SCH (20:02)
[2018-03-25] MEDS: hydrALAzine 20 MG INJ IV PRN (20:05)
[2018-03-26] VITALS (7 sets, daily range): BP systolic 138–143; BP diastolic 72–85; PULSE 73–93; RESP 20
--- NOTE | 2018-03-26 04:38 | NUR ---
vss. afebrile. a&o x4, perrla, odd/incongruent demeanor, borderline guarded. medicated per eMAR indications and side effects discussed. call light within reach. multiple loose BMs. immodium given with little to no relief.
[2018-03-26] MEDS ORDERED: PANTOPRAZOLE (EC) 40 MG TAB PO SCH (06:00)
[2018-03-26] MEDS: Insulin NOVOLOG SS MILD Algorithm (SS with meals and bedtime) SC SCH ×2 (07:48→12:17)
--- NOTE | 2018-03-26 08:05 | NUR ---
PT NOTE Therapy day number 4 Subjective Denies pain Pain Scale NUMERIC Pain Intensity 0 (0-10) Patient Stated Goal for Pain Relief 0 (0-10) Pain Level Comment denies Pre Treatment Vital Signs Stable Yes Transfer Training Start Time 08:05 Supine to Sit Minimum Assist Transfer Sit to Stand Ability Minimum Assist Bed Mobility Sit to Supine Minimum Assist Sitting Tolerance 10 min Additional Mobility Comments bed mob Fransisco using BR Transfer Training End Time 08:20 Total Transfer Training Time 15 min (8-127) Gait Training Start Time 08:20 Gait Assist Levels Moderate Assist Assistive Devices Front Wheel Walker Ambulation Distance 80 feet Additional Gait Comments 3 LOB with initial stand/turning, veering L with gait, VC safe placement Gait Training End Time 08:35 Total Gait Training Treatment Time 15 min (8-127) Weight Bearing Assessment Label Bilat Lower Extremity Weight Bearing Status Full Weight Bearing Static Sitting Balance Fair Dynamic Sitting Balance Fair Standing Static Balance Fair minus Dynamic Standing Balance Fair minus Additional Balance Assessments Comments with FWW Safety Judgement Fair Activity Tolerance Fair Equipment Present A pump Last Catheter IV pump Post Treatment Pain Intensity 0 0-10 Additional Post Treatment Comment See Below Total Treament Time 30 min (8-127) Total Minutes 30 Total Units 2 PT Technical Record Comment PT NOTE S: Pt agreeable to PT with encouragement, denying pain or dizziness. Cleared for PT per RN Debora. O: Pt received semifowler in bed, sleeping but easily roused, alert and appropriate, in no apparent distress, following one step commands 50% of time. Performed thera ex, transfer tr and gait tr per tech record above with Fransisco to ModA, using FWW and MODEL MAKER APPRENTICE. Pt with reciprocal gait, flexed posture, veering L, multple LOB with initial standing and with turning, pt requiring modA for AD mgmt and steering, VC for safe hand placement, pt not following VC to maintain FWW at safe distance during sit<>stand transfer. Fransisco for bed mobility with 50% TC/VC for hand placment/ sequencing/ initiation. Pt BTB and positioned for comfort post tx with call light and needs in reach, bed alarm armed, pt in no apparent distress, RN updated re pt status. A: Pt elana tx fairly, limited by decreased cognition, decreased dynamic balance/midline orientation, decreased safety awareness. Pt will benefit from FWW if DC'd home. P: Cont POC
[2018-03-26] MEDS: BENAZEPRIL 40 MG TAB PO SCH (08:06)
[2018-03-26] MEDS: ASPIRIN (EC) 81 MG TAB PO SCH (08:06)
[2018-03-26] MEDS: NIFEdipine (XL) 30 MG TAB PO SCH (08:06)
[2018-03-26] MEDS: LABETALOL 100 MG TAB PO SCH (08:06)
--- NOTE | 2018-03-26 08:50 | NUR ---
OT NOTE S: RN cleared pt for skilled OT Tx. Pt reported 0/10 pain. O: Pt received supine in bed and agreeable to tx. Pt performed supine->sit at EOB with Min A requiring vc for proper hand placement. Pt demonstrated Fair sitting balance while donning socks with CGA and performing UB/LB bathing and UB dressing with Supervision. Pt required Min A for STS and toilet transfer with vc for safety and proper hand positioning. Pt stood at bathroom sink with CGA while performing oral hygiene with supervision. Pt returned to bed with Min A. Pt left supine in bed with all needs met. RN notified. A: Pt demonstrates increased participation and followed commands appropriately during tx. Pt was non-verbal most of session however answered to yes and no questions. P: Cont with POC.
--- NOTE | 2018-03-26 12:13 | NUR ---
CM NOTE INQUIRY SENT TO [facility], S/W TAMMY AT [facility] AND SHE IS WORKING AT [place] [phone] Addendum: 03/26/18 at 1451 by RODNEY HALL RN CM FWW DELIVERED TO PT AT BEDSIDE AND S/W DAUGHTER ROLAND IN REGARD TO HOME HEALTH AND PHONE NUMBER PROVIDED TO HER TO FOLLOW UP IN 24-48 HOURS IF SHE HAS NOT BEEN CONTACTED.
[2018-03-26] MEDS ORDERED: NIFE30TA2 PO (13:50)
--- NOTE | 2018-03-26 13:51 | PDOCDIS ---
Discharge Instructions CONDITION [id number] Patient Condition: [id number] Stable HOME CARE INSTRUCTIONS: [id number] Special Diet: [id number] sift diet FOLLOW UP/APPOINTMENTS Follow-up Plan 1. Please follow up with your primary care provider as soon as possible 2. Continue home medications BONNY QUIROS Mar 26, 2018 13:51
--- NOTE | 2018-03-26 13:51 | CONS ---
Assessment/Plan Assessment/Plan Hospital Course 67 yo F with hx of CVA, HTN, and other comorbidities who presents with ams in the context of fevers, for which neurology is consulted. UCx + EColi.. Most clinically consistent w/ an acute toxic-metabolic on chronic encephalopathy.. MRI brain is most notable for subcortical white matter hyperintensities of nonspecific etiology.. MRA H/N is unremarkable EEG was notable for severe diffuse slowing, but was without evidence of epileptiform activity. CSF evaluation is unremarkable.. P: Continued medical management and supportive care per primary Agree w/ ASA/statin for secondary stroke prevention Hold Dilantin Reorient as able Limit sedating medications where possible PT/OT/ST as necessary Will follow clinically Result Diagram: 03/26/18 0438 03/26/18 0438 Results 24hrs Laboratory Tests Test 03/25/18 17:23 03/25/18 19:59 03/26/18 04:38 03/26/18 07:44 Bedside Glucose 185 286 H 233 H White Blood Count 7.5 Red Blood Count 3.72 L Hemoglobin 10.8 L Hematocrit 33.3 L Mean Corpuscular Volume 89.5 Mean Corpuscular 29.0 Hemoglobin Mean Corpuscular 32.4 Hemoglobin Concent Red Cell Distribution 13.6 Width Platelet Count 166 Mean Platelet Volume 11.5 H Immature Granulocytes % 0.500 H Neutrophils % 69.4 Lymphocytes % 20.8 Monocytes % 6.3 Eosinophils % 2.6 Basophils % 0.4 Nucleated Red Blood 0.0 Cells % Immature Granulocytes # 0.040 H Neutrophils # 5.2 Lymphocytes # 1.6 Monocytes # 0.5 Eosinophils # 0.2 Basophils # 0.0 Nucleated Red Blood 0.0 Cells # Sodium Level 143 Potassium Level 3.8 Chloride Level 104 Carbon Dioxide Level 29 Anion Gap 10 Blood Urea Nitrogen 11 Creatinine 0.75 Est Glomerular Filtrat > 60 Rate mL/min Glucose Level 241 H Calcium Level 9.3 Phosphorus Level 3.6 Magnesium Level 1.7 Test 03/26/18 12:13 Bedside Glucose 239 H Consultation Date/Type/Reason Admit Date/Time Mar 20, 2018 at 08:28 Type of Consult Neurology Reason for Consultation ams; eval for status epilepticus Requesting Provider: JACQUIE BAIRD MD Date/Time of Note DATE: 03/26/18 TIME: 13:51 24 HR Interval Summary Free Text/Dictation Continues telemetry monitoring. Pt states that she is feeling better today. Exam Vital Signs Vitals Vital Signs Date Temp Pulse Resp B/P (MAP) Pulse Ox O2 O2 Flow FiO2 Time Delivery Rate 03/26/18 73 12:01 03/26/18 98.4 20 140/72 94 Room Air 11:51 (94) Intake and Output 03/25/18 03/25/18 03/26/18 1515:00 23:00 07:00 IntakeIntake Total 1000 ml 600 ml 0 ml OutputOutput Total 1450 ml 800 ml 1600 ml BalanceBalance -450 ml -200 ml -1600 ml Exam PE: Gen Appearance: No Apparent Distress HEENT: Normocephalic Cardiovascular: Regular rate Abdomen: Soft Extremities: Dry NE: The patient was alert, though dysphasic. Cranial nerve examination was limited by mental status. Pupils were equal and reactive to light. There was no afferent pupillary defect. Funduscopic examination was limited. Face was grossly symmetric, w/ present corneal reflexes. Tone was normal. Muscle bulk was normal. I did not see fasciculations. The patient moved her limbs symmetrically.. Coordination and gait testing was limited by mental status. Arm and leg reflexes were symmetric. Arenas's sign was absent. Plantar responses were flexor. SISSY HARRY NP Mar 26, 2018 13:51
--- NOTE | 2018-03-26 13:54 | DS ---
Date/Time of Note Date/Time of Note DATE: 03/26/18 TIME: 13:54 Discharge Summary Admission/Discharge Info Admit Date/Time Mar 20, 2018 at 08:28 Discharge Date/Time Patient Condition: Stable Hospital Course Patient is a female with a past medical history significant for baseline dementia secondary to CVA, diabetes mellitus who originally presented to [facility] for altered mental status. Patient was seen by neurology and had a full workup including lumbar puncture to rule out meningitis or other encephalitis. From a neurology standpoint patient is clear from those infections and patient is back to baseline. It is highly likely at this time the patient suffered altered mental status due to a urinary tract infection. Patient finished a course of cefepime while in patient will not need additional medications on discharge. Patient's blood pressure was better controlled and a new medication will be given on discharge. Patient is to continue other home medications and patient will follow up with her primary care provider as soon as possible. Patient will return home with front wheel walker and home health PT. Discharge diagnoses Acute encephalopathy, likely secondary to UTI Urinary tract infection Diabetes mellitus Hypertension History of CVA Chronic encephalopathy, due to dementia Home Meds Active Scripts Nifedipine (Procardia Xl) 30 Mg Tab.er.24, 30 MG PO DAILY for 30 Days, #30 TAB Prov:BONNY QUIROS 03/26/18 Reported Medications Calcium Carbonate-Vit D3-Minerals (Calcium 600 + D + Minerals) 1 Each Tablet, 1 TAB PO DAILY, TAB 03/19/18 Atorvastatin* (Atorvastatin*) 80 Mg Tablet, 80 MG PO QHS, #30 TAB 03/19/18 Glimepiride* (Glimepiride*) 4 Mg Tablet, 4 MG PO WITH BREAKFAST, TAB 03/19/18 Benazepril Hcl* (Benazepril Hcl*) 40 Mg Tablet, 40 MG PO DAILY, #30 TAB 03/19/18 Aspirin* (Aspirin* EC) 81 Mg Tablet.dr, 81 MG PO DAILY, TAB 03/19/18 Metformin Hcl* (Metformin Hcl*) 500 Mg Tablet, 500 MG PO WITH BREAKFAST DINNE, #60 TAB 03/19/18 Labetalol Hcl* (Labetalol Hcl*) 100 Mg Tablet, 50 MG PO QAM, TAB 03/19/18 Discontinued Reported Medications [?Htn Med] No Conflict Check 04/04/12 Follow-up Plan 1. Please follow up with your primary care provider as soon as possible 2. Continue home medications Primary Care Provider Care Physician No Primary Time spent on discharge: > 30 minutes Pending Labs Laboratory Tests Test 03/25/18 17:23 03/25/18 19:59 03/26/18 04:38 03/26/18 07:44 Bedside 185 286 233 Glucose mg/dL (70-220) mg/dL (70-220) mg/dL (70-220) White Blood 7.5 Count 10^3/ul (4.8-1 0.8) Red Blood 3.72 Count 10^6/ul (4.20- 5.40) Hemoglobin 10.8 g/dl (12.0-16. 0) Hematocrit 33.3 % (37.0-47.0) Mean 89.5 Corpuscular fl (82.0-101.0 Volume ) Mean 29.0 Corpuscular pg (29.0-33.0) Hemoglobin Mean 32.4 Corpuscular g/dl (32.0-37. Hemoglobin Conc 0) ent Red Cell 13.6 Distribution % (11.5-14.5) Width Platelet Count 166 10^3/UL (140-4 15) Mean Platelet 11.5 Volume fl (7.4-10.4) Immature 0.500 Granulocytes % % (0.001-0.429 ) Neutrophils % 69.4 % (39.0-77.0) Lymphocytes % 20.8 % (15.0-51.0) Monocytes % 6.3 % (0.0-11.0) Eosinophils % 2.6 % (0.0-7.0) Basophils % 0.4 % (0.0-2.0) Nucleated Red 0.0 Blood Cells % /100WBC (0.0-0 .0) Immature 0.040 Granulocytes # 10^3/ul (0.0-0 .031) Neutrophils # 5.2 10^3/ul (1.6-7 .5) Lymphocytes # 1.6 10^3/ul (0.8-2 .9) Monocytes # 0.5 10^3/ul (0.3-0 .9) Eosinophils # 0.2 10^3/ul (0.0-0 .5) Basophils # 0.0 10^3/ul (0.0-0 .1) Nucleated Red 0.0 Blood Cells # 10^3/ul (0.0-0 .0) Sodium Level 143 mmol/L (135-14 4) Potassium 3.8 Level mmol/L (3.5-5. 1) Chloride Level 104 mmol/L (97-110 ) Carbon Dioxide 29 Level mmol/L (21-31) Anion Gap 10 (5-13) Blood Urea 11 Nitrogen mg/dl (7-20) Creatinine 0.75 mg/dl (0.44-1. 00) Est Glomerular > 60 Filtrat mL/min (>60) Rate mL/min Glucose Level 241 mg/dl (70-220) Calcium Level 9.3 mg/dl (8.4-10. 2) Phosphorus 3.6 Level mg/dl (2.5-4.9 ) Magnesium 1.7 Level mg/dl (1.7-2.5 ) Test 03/26/18 12:13 Bedside 239 Glucose mg/dL (70-220) BONNY QUIROS Mar 26, 2018 13:54
--- NOTE | 2018-03-26 15:30 | NUR ---
Discharge instructions are given to the pt and pt's daughter. Pt and pt's daughter verbalized understanding of given instructions. Pt's daughter got her new prescription. Education is given about pt's new medications. Last cath was removed, pt tolerated the procedure well. IV was removed. No bleeding noted. Pt has her front wheel walker next to bedside. Pt's family are notified about Home health company.
== END 2018-03-26 16:14 | disposition home health service (06) | DRG 689 ==
LOC: E/R 18:18 → ICU 03-20 08:28 → EDBEDREQSVC 03-20 08:28 → 6WM 03-21 12:16
PROVIDERS: ADMIT Internal Medicine; ATTEND Internal Medicine
PROC: 009U3ZX Drainage of Spinal Canal, Percutaneous Approach, Diagnostic (ICD-10-PCS; principal; 2018-03-23)
PROC: B01BYZZ Fluoroscopy of Spinal Cord using Other Contrast (ICD-10-PCS; 2018-03-23)
DX: N39.0 Urinary tract infection, site not specified (principal); G92 Toxic encephalopathy; I16.1 Hypertensive emergency; B96.20 Unspecified Escherichia coli [E. coli] as the cause of diseases classified elsewhere; E11.9 Type 2 diabetes mellitus without complications; E78.5 Hyperlipidemia, unspecified; F03.90 Unspecified dementia, unspecified severity, without behavioral disturbance, psychotic disturbance, mood disturbance, and anxiety; I10 Essential (primary) hypertension; Z53.09 Procedure and treatment not carried out because of other contraindication; I69.398 Other sequelae of cerebral infarction; I69.320 Aphasia following cerebral infarction; Z79.82 Long term (current) use of aspirin; Z79.4 Long term (current) use of insulin
CPT/HCPCS: 36415; 36600; 70450; 70496; 70498; 70546; 70553; 71045; 80048; 80053; 80069; 80202; 80307; 81001; 82803; 82945; 82962; 83036; 83605; 83690; 83735; 84100; 84157; 84484; 85025; 85610; 85730; 86788; 86789; 87040; 87070; 87081; 87086; 89051; 92526; 92610; 93005; 93306; 95819; 96374; 96375; 97110; 97116; 97162; 97167; 97530; 97535; C9113; J0131; J0133; J0360; J0692; J0696; J1165; J1815; J1953; J2060; J3370; J3480; J7030; J7042; Q9967